=== PATIENT | male | born 1965 | race American Indian/Alaskan Native ===

== ENCOUNTER 2016-05-15 07:57 | Emergency (ER) | payer BC ==
[2016-05-15 08:06] VITALS: TEMP 98.6; O2SAT 98; BMI 23.0
[2016-05-15] MEDS ORDERED: Naproxen 550 mg Tab PO STA (08:16)
--- NOTE | 2016-05-15 08:25 | ED PDOC ---
Arrival/HPI - General Chief Complaint: Back Pain Time Seen by Provider: 05/15/16 08:11 Historian: Patient - History of Present Illness Narrative History of Present Illness (Text): 05/15/16 08:19 50 year old male presents to the emergency department with right sided back pain for the past 2 months. He states he has had this pain before. Denies trauma or injury. Denies urinary symptoms. states follows with dr antoine. noted hnp in past, s/p injection. Time/Duration: > month Symptom Onset: Gradual Symptom Course: Unchanged Modifying Factors (Text): None Associated Symptoms (Text): None Past Medical History - Provider Review Nursing Documentation Reviewed: Yes - Infectious Disease Hx of Infectious Diseases: None - Tetanus Immunization Tetanus Immunization: Unknown - Cardiac Hx Hypertension: Yes - Pulmonary Hx Respiratory Disorders: Yes Hx Bronchitis: Yes - Neurological Hx Neurological Disorder: Yes Hx Alzheimer's Disease: No HX Cerebrovascular Accident: No Hx Dementia: No Hx Dizziness: No Hx Meningitis: No Hx Migraine: Yes Hx Parkinson's Disease: No Hx Seizures: No Hx Transient Ischemic Attacks (TIA): No - HEENT Hx HEENT Disorder: Yes (Sinusitis, sinus surgery, ringing in the ears) - Renal Hx Renal Disorder: No Hx Dialysis: No Hx Kidney Stones: No Hx Neurogenic Bladder: No Hx Pyelonephritis: No Hx Renal Cancer: No Hx Renal Failure: No - Endocrine/Metabolic Hx Endocrine Disorders: No Hx Adrenal Cancer: No Hx Diabetes Insipidus: No Hx Diabetes Mellitus Type 1: No Hx Diabetes Mellitus Type 2: No Hx Hyperthyroidism: No Hx Hypothyroidism: No Hx Systemic Lupus Erythematosus: No - Hematological/Oncological Hx Blood Disorders: No Hx AIDS: No Hx Anemia: No Hx Cancer: No Hx Chemotherapy: No Hx Cirrhosis: No Hx Hemophilia: No Hx Hepatitis A: No Hx Hepatitis B: No Hx Hepatitis C: No Hx Metastasis: No Hx Shingles: No Hx Sickle Cell Disease: No Hx Unexplained Bleeding: No - Integumentary Hx Dermatological Disorder: No Hx Basal Cell Carcinoma: No Hx Eczema: No Hx Melanoma: No Hx Psoriasis: No Hx Squamous Cell Carcinoma: No - Musculoskeletal/Rheumatological Hx Arthritis: Yes - Gastrointestinal Hx Gastrointestinal Disorders: Yes Hx Colostomy: No Hx Crohn's Disease: No Hx Diverticulitis: No Hx Gall Bladder Disease: No Hx Gastroesophageal Reflux: Yes Hx Gastrointestinal Ulcer: Yes Hx Ileostomy: No Hx Liver Failure: No Hx Pancreatitis: No HX Swallowing Problems: No - Genitourinary/Gynecological Hx Genitourinary Disorders: No Hx Hematuria: No Hx Incontinence: No Hx Prostate Problems: No Hx Sexually Transmitted Diseases: No Hx Urinary Tract Infection: No - Psychiatric Hx Psychophysiologic Disorder: No Hx Anxiety: No Hx Bipolar Disorder: No Hx Depression: No Hx Emotional Abuse: No Hx Hallucinations: No Hx Panic Disorder: No Hx Post Traumatic Stress Disorder: No Hx Psychosis: No Hx Physical Abuse: No Hx Schizophrenia: No Hx Sexual Abuse: No Hx Substance Use: No - Surgical History Hx Amputation: No Hx Appendectomy: No Hx Cardiac Catheterization: No Hx Cholecystectomy: No Hx Coronary Stent: No Hx Gastric Bypass Surgery: No Hx Hysterectomy: No Hx Joint Replacement: No Hx Kidney Transplant: No Hx Liver Transplant: No Hx Mastectomy: No Hx Musculoskeletal Surgery: Yes Hx Open Heart Surgery: No Hx Orthopedic Surgery: Yes Hx Splenectomy: No Hx Valve Replacement: No - Anesthesia Hx Anesthesia Reactions: No Hx Malignant Hyperthermia: No - Suicidal Assessment Feels Threatened In Home Enviroment: No Family/Social History - Physician Review Nursing Documentation Reviewed: Yes Family/Social History: Unknown Family HX Smoking Status: Never Smoked Hx Alcohol Use: Yes (1-2 beers per day) Hx Substance Use: No Hx Substance Use Treatment: No Allergies/Home Meds Allergies/Adverse Reactions: Allergies aspirin Allergy (Verified 05/15/16 08:06) RASH Home Medications: Home Meds Medication Instructions Recorded Confirmed Rosuvastatin Calcium [Crestor] 10 mg PO QPM 05/10/14 05/15/16 Dexlansoprazole [Dexilant] 60 mg PO DAILY 01/31/16 05/15/16 Folic Acid 1 mg PO DAILY 01/31/16 05/15/16 Levocetirizine Dihydrochloride 5 mg PO DAILY 01/31/16 05/15/16 [Xyzal] Zolpidem [Ambien] 10 mg PO HS 01/31/16 05/15/16 Review of Systems - Physician Review All systems were reviewed & negative as marked: Yes - Review of Systems Respiratory: absent: SOB, Cough Cardiovascular: absent: Chest Pain Gastrointestinal: absent: Abdominal Pain Genitourinary Male: absent: Dysuria, Frequency, Hematuria Musculoskeletal: Back Pain Neurological: absent: Headache Physical Exam Vital Signs Reviewed: Yes Vital Signs Temp Pulse Resp BP Pulse Ox 05/15/16 09:47 89 18 134/86 98 05/15/16 08:02 98.6 F 96 H 16 136/91 H 98 Temperature: Afebrile Blood Pressure: Normal Pulse: Regular Respiratory Rate: Normal Appearance: Positive for: Well-Appearing, Non-Toxic, Comfortable Pain Distress: None Mental Status: Positive for: Alert and Oriented X 3 - Systems Exam Head: Present: Atraumatic, Normocephalic Pupils: Present: PERRL Extroacular Muscles: Present: EOMI Conjunctiva: Present: Normal Mouth: Present: Moist Mucous Membranes Neck: Present: Normal Range of Motion Respiratory/Chest: Present: Clear to Auscultation, Good Air Exchange. No: Respiratory Distress, Accessory Muscle Use Cardiovascular: Present: Regular Rate and Rhythm, Normal S1, S2. No: Murmurs Abdomen: Present: Normal Bowel Sounds. No: Tenderness, Distention, Peritoneal Signs Back: Present: Paraspinal Tenderness (Right lumbar paraspinal tenderness) Upper Extremity: Present: Normal Inspection. No: Cyanosis, Edema Lower Extremity: Present: Normal Inspection. No: Edema Neurological: Present: GCS=15, CN II-XII Intact, Speech Normal Skin: Present: Warm, Dry, Normal Color. No: Rashes Psychiatric: Present: Alert, Oriented x 3, Normal Insight, Normal Concentration Medical Decision Making ED Course and Treatment: Impression: 50 year old male presents to the emergency department with right sided back pain for the past 2 months. Differential Diagnosis include but are not limited to: Strain vs nonspecific back pain Plan: -- Anaprox, Flexeril -- Reassess and disposition Prior Visits: Notes and results from previous visits were reviewed. Patient last seen in ED on 12/16/15 for chest pain and left AMA. Progress Notes: 05/15/16 09:47 Patient sleeping comfortably, steady gait, neuro intact. stable for dc. no urinary changes, no saddle anesthesia. - Lab Interpretations Lab Results: Lab Results 05/15/16 08:40: Urine Color Yellow, Urine Appearance Clear, Urine pH 5.5, Ur Specific [place] 1.010, Urine Protein Negative, Urine Glucose (UA) Negative, Urine Ketones Negative, Urine Blood Negative, Urine Nitrate Negative, Urine Bilirubin Negative, Urine Urobilinogen 0.2, Ur Leukocyte Esterase Small H, Urine RBC 0 - 2, Urine WBC 1 - 3, Ur Epithelial Cells 0 - 2, Urine Bacteria Trace - Medication Orders Current Medication Orders: Discontinued Medications Cyclobenzaprine HCl (Flexeril) 10 mg PO STAT STA Stop: 05/15/16 08:17 Last Admin: 05/15/16 08:35 Dose: 10 MG Naproxen (Anaprox Ds) 550 mg PO STAT STA Stop: 05/15/16 08:17 Last Admin: 05/15/16 08:36 Dose: 550 MG - Scribe Statement The provider has reviewed the documentation as recorded by the Lucila Rivero Provider Scribe Attestation: All medical record entries made by the Lucila were at my direction and personally dictated by me. I have reviewed the chart and agree that the record accurately reflects my personal performance of the history, physical exam, medical decision making, and the department course for this patient. I have also personally directed, reviewed, and agree with the discharge instructions and disposition. Disposition/Present on Arrival - Present on Arrival Any Indicators Present on Arrival: No History of DVT/PE: No History of Uncontrolled Diabetes: No Urinary Catheter: No History of Decub. Ulcer: No History Surgical Site Infection Following: None - Disposition Have Diagnosis and Disposition been Completed?: Yes Diagnosis: Back pain Disposition: HOME/ ROUTINE Disposition Time: 09:48 Condition: STABLE Discharge Instructions (ExitCare): Acute Low Back Pain (ED) Additional Instructions: please see your specialist. return to er with worsening symptoms or concerns. Prescriptions: Cyclobenzaprine [Cyclobenzaprine HCl] 10 mg PO TID PRN #21 tab PRN Reason: Muscle Spasm Naproxen 500 mg PO BID PRN #14 tab PRN Reason: Pain, Mild (1-3) Referrals: Zeke Paiz MD [Primary Care Provider] - Follow up with primary
[2016-05-15 09:06] LABS: PH,URINE 5.5 (4.7-8.0); URINE BILIRUBIN NEGATIVE (NEGATIVE); URINE BLOOD NEGATIVE (NEGATIVE); URINE GLUCOSE (UA) NEGATIVE (NEGATIVE); URINE KETONE NEGATIVE (NEGATIVE); URINE LEUKOCYTE ESTERASE SMALL Leu/uL (NEGATIVE); URINE PROTEIN NEGATIVE mg/dL (<30 mg/dL); URINE UROBILINOGEN 0.2 E.U./dL (<1 E.U./dL)
[2016-05-15 09:12] LABS: URINE APPEARANCE CLEAR (CLEAR); URINE COLOR YELLOW (YELLOW)
[2016-05-15 09:46] LABS: URINE BACTERIA TRACE (NEG); URINE EPITHELIAL CELLS 0 - 2 /hpf (0-5); URINE RBC 0 - 2 /hpf (0-2)
[2016-05-15 09:48] VITALS: BP 134/86; PULSE 89; RESP 18
== END 2016-05-15 10:05 | disposition home or self-care (01) ==
LOC: ED 07:57
DX: M54.9 Dorsalgia, unspecified (principal)

== ENCOUNTER 2016-10-03 23:02 | Observation (INO) | payer BC ==
--- NOTE | 2016-10-03 23:25 | ED PDOC ---
Arrival/HPI <Leobardo Christie - Last Filed: 10/03/16 23:49> - General Historian: Patient <Nisha Pollard - Last Filed: 10/04/16 01:25> - General Time Seen by Provider: 10/03/16 23:04 - History of Present Illness Narrative History of Present Illness (Text): 10/03/16 23:31 50 year old male with past medical history of HTN, HLD, PUD presents for chest pain that began about 10 hours ago. Chest pain located on left side of chest and does not radiate anywhere else. Pain is a sharp sensation and intermittent in nature. Patient denies having any N/V, diaphoresis, lightheadedness, cough, SOB, F/C associated with pain. 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 Patient had outpatient stress test done about 6 months ago which was normal. Patient denies tobacco abuse. Patient's father had CAD at age of 83. (Nisha Pollard) Past Medical History - Provider Review Nursing Documentation Reviewed: Yes - Infectious Disease Hx of Infectious Diseases: None - Tetanus Immunization Tetanus Immunization: Unknown - Cardiac Hx Hypertension: Yes - Pulmonary Hx Respiratory Disorders: Yes Hx Bronchitis: Yes - Neurological Hx Neurological Disorder: Yes Hx Alzheimer's Disease: No HX Cerebrovascular Accident: No Hx Dementia: No Hx Dizziness: No Hx Meningitis: No Hx Migraine: Yes Hx Parkinson's Disease: No Hx Seizures: No Hx Transient Ischemic Attacks (TIA): No - HEENT Hx HEENT Disorder: Yes (Sinusitis, sinus surgery, ringing in the ears) - Renal Hx Renal Disorder: No Hx Dialysis: No Hx Kidney Stones: No Hx Neurogenic Bladder: No Hx Pyelonephritis: No Hx Renal Cancer: No Hx Renal Failure: No - Endocrine/Metabolic Hx Endocrine Disorders: No Hx Adrenal Cancer: No Hx Diabetes Insipidus: No Hx Diabetes Mellitus Type 1: No Hx Diabetes Mellitus Type 2: No Hx Hyperthyroidism: No Hx Hypothyroidism: No Hx Systemic Lupus Erythematosus: No - Hematological/Oncological Hx Blood Disorders: No Hx AIDS: No Hx Anemia: No Hx Cancer: No Hx Chemotherapy: No Hx Cirrhosis: No Hx Hemophilia: No Hx Hepatitis A: No Hx Hepatitis B: No Hx Hepatitis C: No Hx Metastasis: No Hx Shingles: No Hx Sickle Cell Disease: No Hx Unexplained Bleeding: No - Integumentary Hx Dermatological Disorder: No Hx Basal Cell Carcinoma: No Hx Eczema: No Hx Melanoma: No Hx Psoriasis: No Hx Squamous Cell Carcinoma: No - Musculoskeletal/Rheumatological Hx Arthritis: Yes - Gastrointestinal Hx Gastrointestinal Disorders: Yes Hx Colostomy: No Hx Crohn's Disease: No Hx Diverticulitis: No Hx Gall Bladder Disease: No Hx Gastroesophageal Reflux: Yes Hx Gastrointestinal Ulcer: Yes Hx Ileostomy: No Hx Liver Failure: No Hx Pancreatitis: No HX Swallowing Problems: No - Genitourinary/Gynecological Hx Genitourinary Disorders: No Hx Hematuria: No Hx Incontinence: No Hx Prostate Problems: No Hx Sexually Transmitted Diseases: No Hx Urinary Tract Infection: No - Psychiatric Hx Psychophysiologic Disorder: No Hx Anxiety: No Hx Bipolar Disorder: No Hx Depression: No Hx Emotional Abuse: No Hx Hallucinations: No Hx Panic Disorder: No Hx Post Traumatic Stress Disorder: No Hx Psychosis: No Hx Physical Abuse: No Hx Schizophrenia: No Hx Sexual Abuse: No Hx Substance Use: No - Surgical History Hx Amputation: No Hx Appendectomy: No Hx Cardiac Catheterization: No Hx Cholecystectomy: No Hx Coronary Stent: No Hx Gastric Bypass Surgery: No Hx Hysterectomy: No Hx Joint Replacement: No Hx Kidney Transplant: No Hx Liver Transplant: No Hx Mastectomy: No Hx Musculoskeletal Surgery: Yes Hx Open Heart Surgery: No Hx Orthopedic Surgery: Yes Hx Splenectomy: No Hx Valve Replacement: No - Anesthesia Hx Anesthesia Reactions: No Hx Malignant Hyperthermia: No - Suicidal Assessment Feels Threatened In Home Enviroment: No <Nisha Pollard - Last Filed: 10/04/16 01:25> Family/Social History - Physician Review Nursing Documentation Reviewed: Yes Family/Social History: CAD/ID Smoking Status: Never Smoked Hx Alcohol Use: Yes (1-2 beers per day) Hx Substance Use: No Hx Substance Use Treatment: No <Nisha Pollard - Last Filed: 10/04/16 01:25> Allergies/Home Meds <Leobardo Christie - Last Filed: 10/03/16 23:49> <Nisha Pollard - Last Filed: 10/04/16 01:25> Allergies/Adverse Reactions: Allergies aspirin Allergy (Verified 05/15/16 08:06) RASH Home Medications: Home Meds Medication Instructions Recorded Confirmed Rosuvastatin Calcium [Crestor] 10 mg PO QPM 05/10/14 10/04/16 Dexlansoprazole [Dexilant] 60 mg PO DAILY 01/31/16 10/04/16 Folic Acid 1 mg PO DAILY 01/31/16 10/04/16 Levocetirizine Dihydrochloride 5 mg PO DAILY 01/31/16 10/04/16 [Xyzal] Zolpidem [Ambien] 10 mg PO HS 01/31/16 10/04/16 Review of Systems - Review of Systems Constitutional: Normal. absent: Fevers Respiratory: Normal. absent: SOB, Cough Cardiovascular: Chest Pain. absent: Palpitations, Calf Pain Gastrointestinal: Normal. absent: Abdominal Pain, Constipation, Diarrhea, Nausea, Vomiting Genitourinary Male: Normal. absent: Dysuria, Frequency Musculoskeletal: Normal. absent: Back Pain Skin: Normal. absent: Rash, Skin Lesions Neurological: Normal. absent: Headache, Dizziness Endocrine: Normal. absent: Diaphoresis Psychiatric: Normal. absent: Anxiety, Depression <Amn At[place] - Last Filed: 10/04/16 01:25> Physical Exam Temperature: Afebrile Blood Pressure: Normal Pulse: Regular Respiratory Rate: Normal Appearance: Positive for: Well-Appearing, Non-Toxic, Comfortable Pain Distress: None Mental Status: Positive for: Alert and Oriented X 3 - Systems Exam Head: Present: Atraumatic, Normocephalic Pupils: Present: PERRL Mouth: Present: Moist Mucous Membranes Respiratory/Chest: Present: Clear to Auscultation, Good Air Exchange. No: Respiratory Distress, Accessory Muscle Use Cardiovascular: Present: Regular Rate and Rhythm, Normal S1, S2. No: Murmurs, Irregular Rhythm Abdomen: Present: Normal Bowel Sounds. No: Tenderness, Distention, Peritoneal Signs, Rebound, Guarding Back: No: CVA Tenderness Lower Extremity: Present: Normal Inspection. No: Edema, CALF TENDERNESS Neurological: Present: CN II-XII Intact, Speech Normal, Normal Sensory Function Skin: Present: Warm, Dry, Normal Color. No: Rashes Psychiatric: Present: Alert, Oriented x 3, Normal Insight, Normal Concentration <Nisha Pollard - Last Filed: 10/04/16 01:25> Vital Signs Temp Pulse Resp BP Pulse Ox 10/03/16 23:34 98.5 F 94 H 16 140/93 H 96 Medical Decision Making - EKG Interpretation Interpreted by ED Physician: Yes Type: 12 lead EKG <Leobardo Christie - Last Filed: 10/03/16 23:49> - EKG Interpretation Interpreted by ED Physician: Yes Type: 12 lead EKG <Nisha Pollard - Last Filed: 10/04/16 01:25> ED Course and Treatment: Impression: Pt seen and evaluated with medical clinic manager. Pt, whose past medical history includes hypertension, hyperlipidemia, and peptic ulcer disease, presented for intermittent sharp left-sided chest pain. Reports family history of CAD. Aware and agree with HPI, clinical findings, plan, and management. Plan: -- EKG -- Chest X-ray -- Labs, cardiac enzymes -- Reassess and disposition (Leobardo Christie) 10/03/16 23:39 50 year old male with chest pain Will check CBC CMP Cardiac Iso EKG Chest xray Patient states that due to his history of PUD, he does not take aspirin at home. Will give patient plavix. 10/04/16 01:18 CXR is pending. Patient is agreeable to staying in hospital for observation overnight. 10/04/16 01:24 Dr. Paiz accepts patient to his service, also request D dimer on patient. resident doctor notified. (Nisha Pollard) - Lab Interpretations Narrative Lab Interpretation (Text): 10/04/16 01:01 Initial troponin is normal. (Nisha Pollard) Lab Results: 10/03/16 23:45 10/03/16 23:45 Lab Results 10/03/16 23:45: Sodium 139, Potassium 4.4, Chloride 103, Carbon Dioxide 21, Anion Gap 19, BUN 9, Creatinine 0.9, Est GFR ( Amer) > 60, Est GFR (Non- Af Amer) > 60, Random Glucose 94, Calcium 9.7, Total Bilirubin 0.6, AST 65 H, ALT 96 H, Alkaline Phosphatase 68, Lactate Dehydrogenase 592, Total Creatine Kinase 95, Troponin I 0.01 D, Total Protein 8.0, Albumin 4.7, Globulin 3.3, Albumin/Globulin Ratio 1.4 10/03/16 23:45: WBC 4.6 D, RBC 4.65, Hgb 14.7, Hct 42.0, MCV 90.3, MCH 31.6, MCHC 35.0, RDW 14.1, Plt Count 278, MPV 9.2 - RAD Interpretation Radiology Orders: 10/03/16 23:31 CXR (PA/LAT) [CHEST TWO VIEWS (PA/LAT)] [RAD] Stat - EKG Interpretation EKG Interpretation (Text): 10/03/16 23:41 NSR with HR of 91, normal axis, normal intervals. Nonspecific St changes noted unchanged from previous EKG (Nisha Pollard) - Medication Orders Current Medication Orders: Discontinued Medications Clopidogrel Bisulfate (Plavix) 300 mg PO STAT STA Stop: 10/03/16 23:41 Last Admin: 10/04/16 01:24 Dose: 300 mg SHEBA Risk Score for UA/NSTEMI - SHEBA Risk Score Age > 64: NO 3 or more CAD Risk Factors: YES Known CAD (Stenosis greater than 50%): NO Aspirin use in past 7 days: NO Severe Angina: YES EKG ST changes greater than 0.5mm: NO Positive Cardiac Marker: NO SHEBA Score: 2 % risk at 14 days of: all cause mortality, new or recurrent ID, or severe recurrent ischemia requiring urgen revascularization: 8% <Nisha Pollard - Last Filed: 10/04/16 01:25> - PA / FIELD COORDINATOR / Resident Statement / has reviewed & agrees with the documentation as recorded. / has examined the patient and agrees with the treatment plan. <Leobardo Christie - Last Filed: 10/03/16 23:49> Disposition/Present on Arrival <Leobardo Christie - Last Filed: 10/03/16 23:49> - Present on Arrival Any Indicators Present on Arrival: No History of DVT/PE: No History of Uncontrolled Diabetes: No Urinary Catheter: No History Surgical Site Infection Following: None - Disposition Have Diagnosis and Disposition been Completed?: Yes Disposition Time: 01:07 Patient Plan: Admission <Nisha Pollard - Last Filed: 10/04/16 01:25> - Disposition Diagnosis: Chest pain Disposition: HOSPITALIZED Patient Problems: Current Active Problems Problem Status Onset Chest pain Acute Condition: STABLE Discharge Instructions (ExitCare): Chest Pain (ED)
[2016-10-03 23:31] VITALS: BMI 21.2
[2016-10-04 00:03] LABS: HEMOGLOBIN 14.7 gm/dL (14.0-18.0); MEAN CELL VOLUME 90.3 fL (80.0-105.0); MEAN CORPUSCULAR HEMOGLOBIN 31.6 pg (25.0-35.0); MEAN PLATELET VOLUME 9.2 fl (7.0-11.0); RBC 4.65 10^6/uL (3.5-6.1); RED CELL DISTRIBUTION WIDTH 14.1 % (11.5-14.5); WHITE BLOOD COUNT 4.6 10^3/ul (4.5-11.0)
[2016-10-04 00:10] LABS: ALB/GLOB RATIO 1.4 (1.1-1.8); ALBUMIN 4.7 g/dL (3.0-4.8); ALT/SGPT 96 U/L (7-56); AST/SGOT 65 U/L (15-59); BLOOD UREA NITROGEN 9 mg/dL (7-21); CALCIUM 9.7 mg/dL (8.4-10.5); GFR AFRICAN-AMERICAN > 60; GFR NON-AFRICAN AMERICAN > 60
[2016-10-04 00:23] LABS: TROPONIN I 0.01 ng/mL
--- NOTE | 2016-10-04 01:58 | CP.PCM.HP ---
History of Present Illness - History of Present Illness History of Present Illness: H and P for Dr. Paiz 50 y/o M with PMH of HTN and PUD presents to the ED for a 2 day history of chest pain. Pt states he was at home and gradually developed worsening chest pain. Pain is located on the left side of the chest and is nonradiating. Pain is a 6/10 and characterized as a sharp, stabbing type of pain. Pt states pain is intermittent and there are no alleviating or exacerbating factors. Pt did not take any medication for it at home. Pt underwent stress test in 01/2016 which was normal. Pt also underwent echocardiogram at which showed normal EF, trace MR and TR. Pt admits to occasional shortness of breath during this time, but not on exertion. Denies N/V/D, fevers, chills, syncope, dizziness, sick contacts, or trauma. PMH: HTN, PUD FMH: Father - DM, Mother - HTN Surgical Hx: Sinus surgery, Left foot surgery Social Hx: Chews tobacco for 40 years. 2-3 beers per day. Denies illicit drug use Medication: Reviewed, as per [facility] Allergies: ASA Present on Admission - Present on Admission Any Indicators Present on Admission: No Review of Systems - Constitutional Constitutional: absent: Chills, Fatigue, Fever - EENT Eyes: absent: Blurred Vision, Change in Vision Nose/Mouth/Throat: absent: Nasal Discharge, Nose Pain - Cardiovascular Cardiovascular: Chest Pain. absent: Irregular Heart Rhythm, Palpitations - Respiratory Respiratory: Dyspnea. absent: Cough - Gastrointestinal Gastrointestinal: absent: Diarrhea, Nausea, Vomiting - Genitourinary Genitourinary: absent: Dysuria, Pyuria - Musculoskeletal Musculoskeletal: absent: Atrophy, Muscle Weakness - Integumentary Integumentary: absent: New Lesions, Rash - Neurological Neurological: absent: Numbness, Syncope, Tingling - Hematologic/Lymphatic Hematologic: absent: Easy Bleeding, Easy Bruising Past Patient History - Infectious Disease Hx of Infectious Diseases: None - Tetanus Immunizations Tetanus Immunization: Unknown - Past Social History Smoking Status: Never Smoked - CARDIAC Hx Hypertension: Yes - PULMONARY Hx Respiratory Disorders: Yes Hx Bronchitis: Yes - NEUROLOGICAL Hx Neurological Disorder: Yes Hx Alzheimer's Disease: No HX Cerebrovascular Accident: No Hx Dementia: No Hx Dizziness: No Hx Meningitis: No Hx Migraine: Yes Hx Parkinson's Disease: No Hx Seizures: No Hx Transient Ischemic Attacks (TIA): No - HEENT Hx HEENT Problems: Yes (Sinusitis, sinus surgery, ringing in the ears) - RENAL Hx Chronic Kidney Disease: No Hx Dialysis: No Hx Kidney Stones: No Hx Neurogenic Bladder: No Hx Pyelonephritis: No Hx Renal (Kidney) Cancer: No Hx Renal Failure: No - ENDOCRINE/METABOLIC Hx Endocrine Disorders: No Hx Adrenal Cancer: No Hx Diabetes Insipidus: No Hx Diabetes Mellitus Type 1: No Hx Diabetes Mellitus Type 2: No Hx Hyperthyroidism: No Hx Hypothyroidism: No Hx Systemic Lupus Erythematosus: No - HEMATOLOGICAL/ONCOLOGICAL Hx Blood Disorders: No Hx AIDS: No Hx Anemia: No Hx Cancer: No Hx Chemotherapy: No Hx Cirrhosis: No Hx Hemophilia: No Hx Hepatitis A: No Hx Hepatitis B: No Hx Hepatitis C: No Hx Metastesis: No Hx Shingles: No Hx Sickle Cell Disease: No Hx Unexplained Bleeding: No - INTEGUMENTARY Hx Dermatological Problems: No Hx Basil Cell: No Hx Eczema: No Hx Melanoma: No Hx Psoriasis: No Hx Squamous Cell: No - MUSCULOSKELETAL/RHEUMATOLOGICAL Hx Arthritis: Yes - GASTROINTESTINAL Hx Gastrointestinal Disorders: Yes Hx Colostomy: No Hx Crohn's Disease: No Hx Diverticulitis: No Hx Gall Bladder Disease: No Hx Gastroesophageal Reflux: Yes Hx Ileostomy: No Hx Liver Failure: No Hx Pancreatitis: No HX Swallowing Problems: No - GENITOURINARY/GYNECOLOGICAL Hx Genitourinary Disorders: No Hx Hematuria: No Hx Incontinence: No Hx Prostate Problems: No Hx Sexually Transmitted Disorders: No Hx Urinary Tract Infection: No - PSYCHIATRIC Hx Psychophysiologic Disorder: No Hx Anxiety: No Hx Bipolar Disorder: No Hx Depression: No Hx Emotional Abuse: No Hx Hallucinations: No Hx Panic Symptoms: No Hx Post Traumatic Stress Disorder: No Hx Psychosis: No Hx Physical Abuse: No Hx Schizophrenia: No Hx Sexual Abuse: No Hx Substance Use: No - SURGICAL HISTORY Hx Amputation: No Hx Appendectomy: No Hx Cardiac Catheterization: No Hx Cholecystectomy: No Hx Coronary Stent: No Hx Gastric Bypass Surgery: No Hx Hysterectomy: No Hx Joint Replacement: No Hx Kidney Transplant: No Hx Liver Transplant: No Hx Mastectomy: No Hx Musculoskeletal Surgery: Yes Hx Open Heart Surgery: No Hx Orthopedic Surgery: Yes Hx Splenectomy: No Hx Valve Replacement: No - ANESTHESIA Hx Anesthesia Reactions: No Hx Malignant Hyperthermia: No Meds Allergies/Adverse Reactions: Allergies Allergy/AdvReac Type Severity Reaction Status Date / Time aspirin Allergy RASH Verified 05/15/16 08:06 Physical Exam - Constitutional Appears: Well, No Acute Distress - Head Exam Head Exam: ATRAUMATIC, NORMAL INSPECTION, NORMOCEPHALIC - Eye Exam Eye Exam: EOMI - ENT Exam ENT Exam: Mucous Membranes Moist - Neck Exam Neck exam: Positive for: Normal Inspection. Negative for: Lymphadenopathy - Respiratory Exam Respiratory Exam: Clear to Auscultation Bilateral, NORMAL BREATHING PATTERN. absent: Rales, Rhonchi, Wheezes - Cardiovascular Exam Cardiovascular Exam: RRR, +S1, +S2 - GI/Abdominal Exam GI & Abdominal Exam: Normal Bowel Sounds, Soft. absent: Tenderness - Extremities Exam Extremities exam: Positive for: normal inspection. Negative for: calf tenderness, pedal edema - Neurological Exam Neurological exam: Alert, CN II-XII Intact, Oriented x3 - Psychiatric Exam Psychiatric exam: Normal Affect, Normal Mood - Skin Skin Exam: Intact, Normal Color, Warm Results - Vital Signs Recent Vital Signs: Last Vital Signs Temp 98.5 F 10/03/16 23:34 Pulse 94 H 10/03/16 23:34 Resp 16 10/03/16 23:34 BP 140/93 H 10/03/16 23:34 Pulse Ox 96 10/03/16 23:34 - Labs Result Diagrams: 10/03/16 23:45 10/03/16 23:45 Assessment & Plan - Assessment and Plan (Free Text) Plan: 50 y/o with PMH of HTN and PUD presents to the hospital for chest pain r/o ACS. Pt with negative troponins at this time, will trend. D-dimer ordered in the ED was negative. Pt will have cardiology consulted and be continued on home medication. Pt will be admitted to the telemetry unit for further evaluation. 1. Chest r/o ACS - Trend troponins - ASA allergy, will start plavix - Lipid panel ordered - UDS ordered - Echocardiogram and Stress test performed in 01/2016 - EKG NSR - Cardiology consulted, Dr. Horn 2. Transminitis - Mildly elevated LFTs - Will order hepatitis panel - Recheck in AM 3. Hx of HTN - No medication at home - Will consider starting beta juma in AM 4. Hx of PUD - Continue home Dexilant 5. PPX - Dexilant - Heparin Mago, PGY-2
[2016-10-04 05:52] LABS: HEMOGLOBIN 13.9 gm/dL (14.0-18.0); MEAN CELL VOLUME 89.6 fL (80.0-105.0); MEAN CORPUSCULAR HEMOGLOBIN 31.4 pg (25.0-35.0); MEAN PLATELET VOLUME 8.6 fl (7.0-11.0); RBC 4.43 10^6/uL (3.5-6.1); RED CELL DISTRIBUTION WIDTH 14.1 % (11.5-14.5); WHITE BLOOD COUNT 4.4 10^3/ul (4.5-11.0)
[2016-10-04 05:55] VITALS: O2SAT 99
[2016-10-04] MEDS ORDERED: Pantoprazole 40 mg EC Tab PO SCH (06:00)
[2016-10-04 06:05] LABS: ALB/GLOB RATIO 1.4 (1.1-1.8); ALBUMIN 4.3 g/dL (3.0-4.8); ALT/SGPT 95 U/L (7-56); AST/SGOT 53 U/L (15-59); BLOOD UREA NITROGEN 8 mg/dL (7-21); CALCIUM 9.5 mg/dL (8.4-10.5); GFR AFRICAN-AMERICAN > 60; GFR NON-AFRICAN AMERICAN > 60; MAGNESIUM 1.7 mg/dL (1.7-2.2)
[2016-10-04 06:16] LABS: LDL CHOLESTEROL 66 mg/dL (0-129); TROPONIN I 0.03 ng/mL
[2016-10-04 06:18] LABS: HDL CHOLESTEROL 128 mg/dL (29-60)
[2016-10-04] MEDS ORDERED: Potassium Chloride 20 mEq ER Tab PO STA (06:25)
--- NOTE | 2016-10-04 09:59 | CARD ---
APPROVED REPORT EKG Measurement Heart [id number] <Conclusion> Normal sinus rhythm Nonspecific T wave abnormality LVH by voltage No change
--- NOTE | 2016-10-04 10:10 | HP ---
HISTORY OF PRESENT ILLNESS: The patient is a 50-year-old male. The patient presented to the emergency room with chest pain and abdominal discomfort in the epigastric area. The patient says he had some loose bowel movements associated with that. No vomiting. The patient denies any fever, chills, or any symptoms of dizziness or palpitations. PAST MEDICAL HISTORY: The patient's past history is significant that he is taking medication for high blood pressure. He also has history of peptic ulcer disease. He has been evaluated by Dr. Mejia in the past for gastrointestinal disease and colonoscopy examination. The patient has had cardiac evaluation also in the past. SOCIAL HISTORY: He chews tobacco and drinks beer occasionally. He does not take any illicit drugs. ALLERGIES: THE PATIENT IS ALLERGIC TO ASPIRIN. PHYSICAL EXAMINATION GENERAL: On evaluation, the patient is lying in bed, comfortable. VITAL SIGNS: Pulse is 72, blood pressure 124/88, respirations 18, O2 saturation is 99% on room air. Temperature 97.7. HEENT: The patient's head is normocephalic. There is no evidence of any abnormality in the eyes. His tongue is pink. NECK: Thyroid is not enlarged. There is no lymphadenopathy. HEART: Normal sinus rhythm. S1 and S2 present. No murmurs are heard. LUNGS: Trachea central. Breath sounds are vesicular. No adventitious sounds heard. ABDOMEN: Soft. No tenderness present in the four quadrants of the abdomen. There is no evidence of distention. No evidence of masses or localizing signs. RECTAL: Deferred. He has no evidence of any blood, but the patient says he has had a tinge of blood present occasionally. BACON SLICER: Conscious, rational, oriented. The patient is pleasant and his cranial nerves are intact from II through XII. He has sense of smell. His balance is good. The cerebellar signs are normal. His motor and sensory functions are normal. LABORATORY DATA: The patient is in the hospital as an observation patient. His white count is normal. Hemoglobin is 13.9. His chemistry that was done shows abnormal liver enzymes. His SGOT and SGPT are elevated minimally. The patient's HDL level, cholesterol is 128. The patient's troponin is slightly elevated, it was 0.01 and it is 0.03. The patient's potassium is 3.5 this morning. PLAN: We will check his medications, and add potassium to his therapy. He needs a cardiac evaluation in view of the fact that he has slightly elevated troponin level and abnormal liver enzymes. DIAGNOSIS: Chest pain related cardiac event. The patient needs cardiac evaluation. The patient will be seen by Dr. Paiz tomorrow. Jovany Chaves MD MTDRhys
[2016-10-04] MEDS ORDERED: Enoxaparin 40 mg Syringe SC SCH (11:30)
[2016-10-04 11:45] VITALS: BP 134/96; PULSE 73; RESP 20; TEMP 98
--- NOTE | 2016-10-04 12:20 | RAD ---
HISTORY: chest pain COMPARISON: 12/17/2015 TECHNIQUE: Chest PA and lateral FINDINGS: LUNGS: No active pulmonary disease. PLEURA: No significant pleural effusion identified. No pneumothorax apparent. CARDIOVASCULAR: Normal. OSSEOUS STRUCTURES: No significant abnormalities. VISUALIZED UPPER ABDOMEN: Normal. OTHER FINDINGS: None. IMPRESSION: No active disease.
[2016-10-04 16:35] LABS: URINE BILIRUBIN NEGATIVE (NEGATIVE); URINE BLOOD NEGATIVE (NEGATIVE); URINE GLUCOSE (UA) NEGATIVE (NEGATIVE); URINE LEUKOCYTE ESTERASE NEGATIVE Leu/uL (NEGATIVE); URINE NITRATE NEGATIVE (NEGATIVE); URINE PROTEIN NEGATIVE mg/dL (<30 mg/dL); URINE UROBILINOGEN 0.2 E.U./dL (<1 E.U./dL)
[2016-10-04 16:44] LABS: URINE APPEARANCE CLEAR (CLEAR); URINE COLOR YELLOW (YELLOW)
[2016-10-04 16:57] LABS: BARBITURATES, UR POSITIVE (NEGATIVE); BENZODIAZEPINES, UR NEGATIVE (NEGATIVE); OPIATES, UR NEGATIVE (NEGATIVE); PHENCYCLIDINE, UR NEGATIVE (NEGATIVE)
[2016-10-05 08:28] LABS: HEPATITIS B SURFACE AG NEGATIVE (NEGATIVE)
[2016-10-05 08:34] LABS: HEPATITIS A IGM NEGATIVE (NEGATIVE); HEPATITIS B CORE AB NEGATIVE (NEGATIVE)
[2016-10-05 08:45] LABS: HEPATITIS C ANTIBODY NEGATIVE (NEGATIVE)
--- NOTE | 2016-10-05 09:16 | CON ---
DATE: 10/04/2016 CARDIOLOGY CONSULTATION REASON FOR CONSULTATION: Chest pain and abdominal pain. HISTORY OF PRESENT ILLNESS: The patient is a -plvk-ple male who has a history of hyperlipidemia, history of peptic ulcer disease in the past, who has bleeding peptic ulcer disease that did not require blood transfusion. The patient underwent a Myoview stress test, as well as an echocardiogram in 01/2016, they were both within normal limits. Patient presented because of lower sternal chest pain as well as epigastric discomfort and diarrhea. The patient denied any associated diaphoresis. He denies any radiation of his chest discomfort. SOCIAL HISTORY: The patient is nonsmoker. He is a social drinker. He works as a [employer]. MEDICATIONS: Ambien 5 mg at bedtime, Claritin 10 mg once a day, folic acid 1 mg daily, Lipitor 40 mg once a day, Lovenox 40 mg subcutaneously once a day, Plavix 75 mg once a day, Protonix 40 mg p.o. once a day. REVIEW OF SYSTEMS: No vomiting, no melena, no hematemesis. PHYSICAL EXAMINATION: GENERAL: The patient is a middle-aged male who does not appear to be in any distress. VITAL SIGNS: Blood pressure 134/96, heart rate 73, temperature 98, respiration 20. Earlier blood pressure today was within normal limits. HEENT: Normocephalic. CHEST: Clear. HEART: S1 and S2 regular. ABDOMEN: Soft. EXTREMITIES: No edema. LABORATORY DATA: Hemoglobin and hematocrit 13.9 and 39.7, white count and platelet count were 4.4 and 246,000. Today SMA-7 is within normal limits except for potassium of 3.5. Three sets of troponins are within normal limits. HDL cholesterol is 128, the rest of the lipid profile is within normal limits. EKG done twice revealed normal sinus rhythm. ASSESSMENT: 1. Atypical chest pain, myocardial infarction is ruled out. 2. Abdominal pain, rule out penetrating peptic ulcer disease. 3. Hyperlipidemia. RECOMMENDATIONS: Continue current oral Protonix and discontinue Plavix and Lovenox. Continue Lipitor at 40 mg once a day. Obtain serum amylase and lipase levels. No further cardiac workup is necessary at this time. Brennen Hannallah, MD
--- NOTE | 2016-10-05 09:59 | CARD ---
APPROVED REPORT EKG Measurement Heart [id number] <Conclusion> Normal sinus rhythm Voltage criteria for left ventricular hypertrophy Improved repolarization c/w ECG 10/03/16
== END 2016-10-04 15:56 | disposition home or self-care (01) ==
LOC: ED 23:02 → ERH 10-04 01:21 → 2RSO 10-04 02:32
PROVIDERS: ADMIT Internal Medicine; ATTEND Internal Medicine
DX: R07.89 Other chest pain (principal); R10.9 Unspecified abdominal pain; E78.5 Hyperlipidemia, unspecified; I10 Essential (primary) hypertension; K21.9 Gastro-esophageal reflux disease without esophagitis; Z72.0 Tobacco use; Z79.899 Other long term (current) drug therapy; Z82.49 Family history of ischemic heart disease and other diseases of the circulatory system; Z83.3 Family history of diabetes mellitus; J40 Bronchitis, not specified as acute or chronic; J32.9 Chronic sinusitis, unspecified; H93.19 Tinnitus, unspecified ear; M19.90 Unspecified osteoarthritis, unspecified site; I08.1 Rheumatic disorders of both mitral and tricuspid valves; Z88.6 Allergy status to analgesic agent; K27.9 Peptic ulcer, site unspecified, unspecified as acute or chronic, without hemorrhage or perforation
CPT/HCPCS: 71020; 80053; 80061; 80074; 81003; 82550; 83615; 83735; 84484; 85027; 85378; 93005; 99285; G0378; G0480; J1644

== ENCOUNTER 2017-03-24 18:54 | Observation (INO) | payer BC ==
[2017-03-24 19:55] VITALS: BMI 21.7
[2017-03-24 20:35] LABS: HEMOGLOBIN 15.2 g/dL (14.0-18.0); MEAN CELL VOLUME 91.2 fl (80.0-105.0); MEAN CORPUSCULAR HGB CONC 33.9 g/dl (31.0-37.0); MEAN PLATELET VOLUME 9.1 fl (7.0-11.0); RBC 4.91 10^6/uL (3.5-6.1); RED CELL DISTRIBUTION WIDTH 14.6 % (11.5-14.5); WHITE BLOOD COUNT 7.3 10^3/ul (4.5-11.0)
[2017-03-24 20:50] LABS: ALB/GLOB RATIO 1.4 (1.1-1.8); ALBUMIN 4.5 g/dL (3.0-4.8); ALT/SGPT 84 U/L (7-56); AST/SGOT 45 U/L (17-59); BLOOD UREA NITROGEN 9 mg/dL (7-21); CALCIUM 10.7 mg/dL (8.4-10.5); GFR AFRICAN-AMERICAN > 60; GFR NON-AFRICAN AMERICAN > 60
[2017-03-24 20:55] LABS: INR 1.03 (0.93-1.08); PARTIAL THROMBOPLASTIN TIME 35.5 Seconds (25.1-36.5); PROTHROMBIN TIME 11.7 SECONDS (9.4-12.5)
[2017-03-24 21:01] LABS: TROPONIN I < 0.01 ng/mL
--- NOTE | 2017-03-24 21:14 | ED PDOC ---
Arrival/HPI - General Chief Complaint: Headache Time Seen by Provider: 03/24/17 19:37 Historian: Patient - History of Present Illness Narrative History of Present Illness (Text): 03/24/17 20:00 Jose David Blanco is a 51 year old female, whose past medical history includes hypertension and PUD, who presents to the Emergency department for evaluation of chest discomfort and headache discomfort which began today. Patient was seen by his PMD today, who advised him to come to the ER for further evaluation. Patient denies any chest pain currently. Patient denies any shortness of breath , fever, chills, dizziness, or any other complaints. Time/Duration: Other (today) Symptom Onset: Gradual Symptom Course: Unchanged Activities at Onset: Light Context: Home Past Medical History - Provider Review Nursing Documentation Reviewed: Yes - Infectious Disease Hx of Infectious Diseases: None - Tetanus Immunization Tetanus Immunization: Unknown - Cardiac Hx Cardiac Disorders: Yes Hx Hypertension: Yes - Pulmonary Hx Respiratory Disorders: Yes Hx Bronchitis: Yes - Neurological Hx Neurological Disorder: Yes Hx Migraine: Yes - HEENT Hx HEENT Disorder: Yes (Sinusitis, sinus surgery, ringing in the ears) Hx Sinusitis: Yes - Renal Hx Renal Disorder: No - Endocrine/Metabolic Hx Endocrine Disorders: No - Hematological/Oncological Hx Blood Disorders: No - Integumentary Hx Dermatological Disorder: No - Musculoskeletal/Rheumatological Hx Musculoskeletal Disorders: Yes Hx Falls: No Hx Fractures: Yes (Left ankle with surgery) Hx Unsteady Gait: No - Gastrointestinal Hx Gastrointestinal Disorders: Yes Hx Gastroesophageal Reflux: Yes - Genitourinary/Gynecological Hx Genitourinary Disorders: No - Psychiatric Hx Psychophysiologic Disorder: Yes Hx Anxiety: Yes Hx Substance Use: No - Surgical History Hx Mastectomy: No Hx Musculoskeletal Surgery: Yes Hx Orthopedic Surgery: Yes (right knee) - Anesthesia Hx Anesthesia Reactions: No Hx Malignant Hyperthermia: No - Suicidal Assessment Feels Threatened In Home Enviroment: No Family/Social History - Physician Review Nursing Documentation Reviewed: Yes Family/Social History: Unknown Family HX Smoking Status: Never Smoked Hx Alcohol Use: Yes (1-2 beers daily/1 shot of mona daily) Hx Substance Use: No Hx Substance Use Treatment: No Allergies/Home Meds Allergies/Adverse Reactions: Allergies aspirin Allergy (Verified 03/24/17 19:05) RASH Home Medications: Home Meds Medication Instructions Recorded Confirmed Rosuvastatin Calcium [Crestor] 5 mg PO QPM 05/10/14 03/24/17 Dexlansoprazole [Dexilant] 60 mg PO DAILY 01/31/16 03/24/17 Folic Acid 1 mg PO DAILY 01/31/16 03/24/17 Levocetirizine Dihydrochloride 5 mg PO DAILY 01/31/16 03/24/17 [Xyzal] Zolpidem [Ambien] 10 mg PO HS 01/31/16 03/24/17 Acetaminophen/Butalbital/Caf 1 tab PO Q8 03/24/17 03/24/17 [Fioricet] Clonazepam [Klonopin] 0.5 mg PO DAILY 03/24/17 03/24/17 Ergocalciferol (Vitamin D2) 50,000 unit PO BID 03/24/17 03/24/17 [Vitamin D2] Pantoprazole Sodium [Protonix] 40 mg PO DAILY 03/24/17 03/24/17 Valsartan [Diovan] 80 mg PO DAILY 03/24/17 03/24/17 Zolpidem Tartrate [Ambien Cr] 12.5 mg PO QPM PRN 03/24/17 03/24/17 Review of Systems - Physician Review All systems were reviewed & negative as marked: Yes - Review of Systems Constitutional: Normal. absent: Fevers Eyes: Normal ENT: Normal Respiratory: absent: SOB Cardiovascular: Chest Pain Gastrointestinal: Normal. absent: Abdominal Pain, Diarrhea, Nausea, Vomiting Genitourinary Male: Normal. absent: Dysuria, Frequency, Hematuria, Urinary Output Changes Musculoskeletal: Normal. absent: Back Pain, Neck Pain Skin: Normal. absent: Rash Neurological: Headache. absent: Dizziness Endocrine: Normal Hemo/Lymphatic: Normal Psychiatric: Normal Physical Exam Vital Signs Reviewed: Yes Vital Signs Temp Pulse Resp BP Pulse Ox 03/25/17 00:19 80 18 119/85 97 03/24/17 23:34 150/93 H 03/24/17 23:00 93 H 18 153/90 H 97 03/24/17 21:00 97 H 18 152/89 H 97 03/24/17 19:53 98.3 F 98 H 20 157/109 H 99 03/24/17 19:10 98.8 F 106 H 18 134/95 H 97 Temperature: Afebrile Blood Pressure: Hypertensive Pulse: Regular Respiratory Rate: Normal Appearance: Positive for: Well-Appearing, Non-Toxic, Comfortable Pain Distress: None Mental Status: Positive for: Alert and Oriented X 3 - Systems Exam Head: Present: Atraumatic, Normocephalic Pupils: Present: PERRL Extroacular Muscles: Present: EOMI Conjunctiva: Present: Normal Mouth: Present: Moist Mucous Membranes Neck: Present: Normal Range of Motion Respiratory/Chest: Present: Clear to Auscultation, Good Air Exchange. No: Respiratory Distress, Accessory Muscle Use Cardiovascular: Present: Regular Rate and Rhythm, Normal S1, S2. No: Murmurs Abdomen: Present: Normal Bowel Sounds. No: Tenderness, Distention, Peritoneal Signs Back: Present: Normal Inspection Upper Extremity: Present: Normal Inspection. No: Cyanosis, Edema Lower Extremity: Present: Normal Inspection. No: Edema Neurological: Present: GCS=15, CN II-XII Intact, Speech Normal Skin: Present: Warm, Dry, Normal Color. No: Rashes Psychiatric: Present: Alert, Oriented x 3, Normal Insight, Normal Concentration Medical Decision Making ED Course and Treatment: 03/24/17 20:00 Impression: 51 year old male complaining of chest discomfort and headache discomfort today. Plan: -- CT Head -- EKG -- Chest X-ray -- Labs, cardiac enzymes -- Reassess and disposition Prior Visits: Notes and results from previous visits were reviewed. On 10/03/16, pt was seen in the Emergency department for chest pain. Pt was admitted to the hospital for further evaluation. Progress Notes: Reviewed EKG, NSR at [address] LVH. Non-specific ST/T wave changes. 03/24/17 22:10 Chest X-ray reviewed, shows no acute processes. 03/24/17 22:54 CT Head shows: Brain: Unremarkable. No significant white matter disease. No edema. No intracranial mass, mass effect, or midline shift. Ventricles: Unremarkable. No ventriculomegaly. Bones/joints: Unremarkable. No acute fracture. Soft tissues: Unremarkable. Sinuses: Right maxillary sinus versus mucus retention cyst. Mastoid air cells: Unremarkable as visualized. No mastoid effusion. IMPRESSION: No acute intracranial abnormality. 03/24/17 23:[address] Paiz, who is aware and agrees with plan. Accepts pt in to his service. Pt will go to Telemetry observation for chest pain and uncontrolled hypertension. president finance company paged. Requests Dr. Horn on consult. 03/24/17 23:15 Case discussed with electromedical equipment technician youth nutritional monitor, who is aware and agrees with plan. - Lab Interpretations Lab Results: 03/24/17 20:30 03/24/17 20:30 Lab Results 03/24/17 20:30: WBC 7.3 D, RBC 4.91, Hgb 15.2, Hct 44.8, MCV 91.2, MCH 31.0, MCHC 33.9, RDW 14.6 H, Plt Count 242, MPV 9.1 03/24/17 20:30: Sodium 140, Potassium 3.5 L, Chloride 101, Carbon Dioxide 29, Anion Gap 14, BUN 9, Creatinine 1.2, Est GFR ( Amer) > 60, Est GFR (Non- Af Amer) > 60, Random Glucose 92, Calcium 10.7 H, Total Bilirubin 0.4, AST 45, ALT 84 H, Alkaline Phosphatase 71, Lactate Dehydrogenase 444, Total Creatine Kinase 184, Troponin I < 0.01 D, Total Protein 7.6, Albumin 4.5, Globulin 3.1, Albumin/Globulin Ratio 1.4 03/24/17 20:30: PT 11.7, INR 1.03, APTT 35.5 - RAD Interpretation Radiology Orders: 03/24/17 20:04 HEAD W/O CONTRAST [CT] Stat 03/24/17 20:05 CHEST PORTABLE [RAD] Stat - EKG Interpretation Interpreted by ED Physician: Yes Type: 12 lead EKG - Medication Orders Current Medication Orders: Losartan Potassium (Cozaar) 50 mg PO DAILY ONIEL Discontinued Medications Acetaminophen (Tylenol 325mg Tab) 650 mg PO STAT STA Stop: 03/24/17 23:27 Last Admin: 03/24/17 23:34 Dose: 650 mg Clopidogrel Bisulfate (Plavix) 75 mg PO STAT STA Stop: 03/24/17 23:13 Last Admin: 03/24/17 23:33 Dose: 75 mg Ibuprofen (Motrin Tab) 800 mg PO STAT STA Stop: 03/25/17 01:16 Metoprolol Tartrate (Lopressor) 25 mg PO STAT STA Stop: 03/24/17 23:14 Last Admin: 03/24/17 23:34 Dose: 25 mg MAR Pulse and Blood Pressure Document 03/24/17 23:34 JOL (Rec: 03/24/17 23:34 [id number]) Blood Pressure Blood Pressure (100/60-150/90 mm Hg) 150/93 - Scribe Statement The provider has reviewed the documentation as recorded by the Hennyibsneha Dahl All medical record entries made by the Hennyibsneha were at my direction and personally dictated by me. I have reviewed the chart and agree that the record accurately reflects my personal performance of the history, physical exam, medical decision making, and the department course for this patient. I have also personally directed, reviewed, and agree with the discharge instructions and disposition. Disposition/Present on Arrival - Present on Arrival Any Indicators Present on Arrival: No History of DVT/PE: No History of Uncontrolled Diabetes: No Urinary Catheter: No History of Decub. Ulcer: No History Surgical Site Infection Following: None - Disposition Have Diagnosis and Disposition been Completed?: Yes Diagnosis: Chest pain, Labile hypertension Disposition: HOSPITALIZED Disposition Time: 23:14 Patient Plan: Observation Patient Problems: Current Active Problems Problem Status Onset Chest pain Acute Labile hypertension Acute Condition: STABLE
--- NOTE | 2017-03-24 22:54 | CT ---
EXAM: CT Head Without Intravenous Contrast CLINICAL HISTORY: 51 years old, male; Pain; Headache; Headache not specified TECHNIQUE: Axial computed tomography images of the head/brain without intravenous contrast. All CT scans at this facility use one or more dose reduction techniques, viz.: automated exposure control; ma/kV adjustment per patient size (including targeted exams where dose is matched to indication; i.e. head); or iterative reconstruction technique. Coronal and sagittal reformatted images were created and reviewed. COMPARISON: No relevant prior studies available. FINDINGS: Brain: Unremarkable. No significant white matter disease. No edema. No intracranial mass, mass effect, or midline shift. Ventricles: Unremarkable. No ventriculomegaly. Bones/joints: Unremarkable. No acute fracture. Soft tissues: Unremarkable. Sinuses: Right maxillary sinus versus mucus retention cyst. Mastoid air cells: Unremarkable as visualized. No mastoid effusion. IMPRESSION: No acute intracranial abnormality.
--- NOTE | 2017-03-25 03:08 | CP.PCM.HP ---
History of Present Illness - History of Present Illness History of Present Illness: Chief Complaint: headache and high blood pressure HPI: 51 year old male past medical history of PUD, chronic migraines, and hypertension presents with complaints of headache and syncopal episode. Patient states that two days ago he was awoken up from his sleep around 1:00 a.m. with an intense headache. Patient states that he woke up to place a hating pad behind his head and then attempted to go back to sleep. When he woke up again the second time in the morning he proceeded to go into the kitchen when he passed out. States prior to passing out he saw black dots which he normally experiences when he is experiencing really bad migraines. Patient states he possibly loss consciousness he isn't sure. States he has experienced this twice in the past. PMD: Dr. Paiz Surgical history:Right meniscus repair, Sinus surgery, Left ankle surgery Social history: chewed tobacco for over 40 years, drinks occasionally: had a few shots of liqour the night before syncopal episode, denies illicit drug abuse. Medications: please refer to MAR. Patient not compliant with medications Family history: non-contributory Present on Admission - Present on Admission Any Indicators Present on Admission: No Review of Systems - Constitutional Constitutional: Headache. absent: Chills, Fever - EENT Eyes: Change in Vision, Floaters. absent: Blurred Vision Nose/Mouth/Throat: absent: Nasal Congestion, Nasal Discharge - Cardiovascular Cardiovascular: Syncope. absent: Chest Pain, Dyspnea - Respiratory Respiratory: absent: Cough, Dyspnea - Gastrointestinal Gastrointestinal: absent: Abdominal Pain, Diarrhea, Nausea, Vomiting - Genitourinary Genitourinary: absent: Difficulty Urinating, Dysuria - Musculoskeletal Musculoskeletal: absent: Arthralgias, Back Pain - Neurological Neurological: Headaches, Syncope. absent: Dizziness, Numbness, Loss of Vision - Psychiatric Psychiatric: Anxiety. absent: Anhedonia Past Patient History - Infectious Disease Hx of Infectious Diseases: None - Tetanus Immunizations Tetanus Immunization: Unknown - Past Social History Smoking Status: Never Smoked - CARDIAC Hx Cardiac Disorders: Yes Hx Hypertension: Yes - PULMONARY Hx Respiratory Disorders: Yes Hx Bronchitis: Yes - NEUROLOGICAL Hx Neurological Disorder: Yes Hx Migraine: Yes - HEENT Hx HEENT Problems: Yes (Sinusitis, sinus surgery, ringing in the ears) Hx Sinusitis: Yes - RENAL Hx Chronic Kidney Disease: No - ENDOCRINE/METABOLIC Hx Endocrine Disorders: No - HEMATOLOGICAL/ONCOLOGICAL Hx Blood Disorders: No - INTEGUMENTARY Hx Dermatological Problems: No - MUSCULOSKELETAL/RHEUMATOLOGICAL Hx Musculoskeletal Disorders: Yes Hx Falls: No Hx Fractures: Yes (Left ankle with surgery) Hx Unsteady Gait: No - GASTROINTESTINAL Hx Gastrointestinal Disorders: Yes Hx Gastroesophageal Reflux: Yes - GENITOURINARY/GYNECOLOGICAL Hx Genitourinary Disorders: No - PSYCHIATRIC Hx Psychophysiologic Disorder: Yes Hx Anxiety: Yes Hx Substance Use: No - SURGICAL HISTORY Hx Mastectomy: No Hx Musculoskeletal Surgery: Yes Hx Orthopedic Surgery: Yes (right knee) - ANESTHESIA Hx Anesthesia Reactions: No Hx Malignant Hyperthermia: No Meds Allergies/Adverse Reactions: Allergies Allergy/AdvReac Type Severity Reaction Status Date / Time aspirin Allergy RASH Verified 03/24/17 19:05 Physical Exam - Constitutional Appears: Non-toxic, No Acute Distress - Head Exam Head Exam: ATRAUMATIC, NORMAL INSPECTION, NORMOCEPHALIC - Eye Exam Eye Exam: EOMI, Normal appearance, PERRL - ENT Exam ENT Exam: Mucous Membranes Moist - Respiratory Exam Respiratory Exam: Clear to Auscultation Bilateral, NORMAL BREATHING PATTERN. absent: Rhonchi, Wheezes - Cardiovascular Exam Cardiovascular Exam: REGULAR RHYTHM, +S1, +S2 - GI/Abdominal Exam GI & Abdominal Exam: Normal Bowel Sounds, Soft - Extremities Exam Extremities exam: Positive for: normal inspection - Back Exam Back exam: NORMAL INSPECTION - Neurological Exam Neurological exam: Alert, CN II-XII Intact, Oriented x3 - Psychiatric Exam Psychiatric exam: Normal Affect, Normal Mood - Skin Skin Exam: Intact, Normal Color, Warm Results - Vital Signs Recent Vital Signs: Last Vital Signs Temp 98.3 F 03/25/17 00:49 Pulse 77 03/25/17 00:49 Resp 20 03/25/17 00:49 BP 140/97 H 03/25/17 00:49 Pulse Ox 97 03/25/17 00:19 - Labs Result Diagrams: 03/25/17 06:45 03/25/17 06:45 Assessment & Plan - Assessment and Plan (Free Text) Assessment: 51 year old male past medical history of PUD, chronic migraines, and hypertension presents with complaints of headache and syncopal episode. Plan: Syncope -Echocardiogram ordered;results pending -Carotid doppler ordered;results pending -Orthostatic vitals signs -Cardiology consulted; recommendations appreciated -Neurology consulted; recommendations appreciated Headache -Band like around forehead extending to neck, tension headache: treat with NSAIDs -Neurology consulted; recommendations appreciated -Fioricit -Mysoline -Topamax Hypertension -Currently stable, continue to monitor -Continue with Losartan Anxiety -continue with klonopin DVT/GI prophylaxis Lovenox/Pepcid
[2017-03-25] MEDS ORDERED: Potassium Chloride 20 mEq ER Tab PO ONE ×2 (03:52→15:31)
[2017-03-25] MEDS ORDERED: Apap-Butalbital-Caffeine 325-50-40mg Tab PO SCH (06:00)
[2017-03-25 07:10] LABS: BASO # 0.04 K/mm3 (0.0-2.0); BASO % 0.8 % (0.0-3.0); EOS # 0.1 (0.0-0.7); EOS % 2.7 % (1.5-5.0); GRAN # 2.26 (1.4-6.5); GRAN % 47.8 % (50.0-68.0); HEMOGLOBIN 15.1 g/dL (14.0-18.0); LYMPH # 1.8 (1.2-3.4); LYMPH % 38.1 % (22.0-35.0); MEAN CELL VOLUME 91.9 fl (80.0-105.0); MEAN CORPUSCULAR HEMOGLOBIN 30.8 pg (25.0-35.0); MEAN CORPUSCULAR HGB CONC 33.5 g/dl (31.0-37.0); MEAN PLATELET VOLUME 9.2 fl (7.0-11.0); MONO # 0.5 (0.1-0.6); MONO % 10.6 % (1.0-6.0); RBC 4.91 10^6/uL (3.5-6.1); RED CELL DISTRIBUTION WIDTH 14.9 % (11.5-14.5); WHITE BLOOD COUNT 4.7 10^3/ul (4.5-11.0)
[2017-03-25 07:32] LABS: TROPONIN I < 0.01 ng/mL
[2017-03-25 07:51] LABS: ALB/GLOB RATIO 1.4 (1.1-1.8); ALBUMIN 4.2 g/dL (3.0-4.8); ALT/SGPT 73 U/L (7-56); AST/SGOT 37 U/L (17-59); BLOOD UREA NITROGEN 11 mg/dL (7-21); CALCIUM 10.3 mg/dL (8.4-10.5); GFR AFRICAN-AMERICAN > 60; GFR NON-AFRICAN AMERICAN > 60; MAGNESIUM 1.9 mg/dL (1.7-2.2)
--- NOTE | 2017-03-25 09:06 | CP.PCM.CON ---
<JuanjoNga - Last Filed: 03/25/17 13:10> History of Present Illness - History of Present Illness History of Present Illness: PGY-[address] Hair Neurology Consult: Fall, r/o syncope Mr Jose David Adkins, 51 AA M, Tobacco chewer, recently underwent R knee menisus repair, with PMH Migraine, tinnitus, HTN, Hx GI bleed from PUD/GERD c/o headache and Fall. Patient states that two days ago he was awoken up from his sleep around 1:00 a.m. with an intense headache. Patient states that he woke up to place a hating pad behind his head and the headache has kept him from sleeping. As sun began to rise, he got out of bed. As he walked to the kitchen, he fell in the hallway. Denied LOC, dizziness, change of vision, sudden weakness. Pt is able to get himself up after the fall and drove to [facility]. He took blood pressure at [facility] aide is noted 158/108. Pt mentioned that his hand tremor was getting worse in the past year that he dropped things and had a hard time writing legibly Head CT: No acute intracranial abnormality ROS (+) headache with occasional dark spots and photophobia (+) hand tremor Denies change of vision, tinnitus, PMH HTN Migraine GERD, Peptic ulcer disease, Hx GI bleed PSH R meniscus repair, R knee, 02/17/17 Sinus surgery L ankle surgery FH Father - DM. Mother - HTN SH Chew tobacco x 40 years 2-3 beer everyday Denied illicit drugs Allergy ASPIRIN Med Valsartan, Crestor Protonix/Dexilant, Folic acid, D2 Xyzal Clonazepam Fioricet Zolpidem Past Patient History - Infectious Disease Hx of Infectious Diseases: None - Tetanus Immunizations Tetanus Immunization: Unknown - Past Social History Smoking Status: Never Smoked - CARDIAC Hx Cardiac Disorders: Yes Hx Hypertension: Yes - PULMONARY Hx Respiratory Disorders: Yes Hx Bronchitis: Yes - NEUROLOGICAL Hx Neurological Disorder: Yes Hx Migraine: Yes - HEENT Hx HEENT Problems: Yes (Sinusitis, sinus surgery, ringing in the ears) Hx Sinusitis: Yes - RENAL Hx Chronic Kidney Disease: No - ENDOCRINE/METABOLIC Hx Endocrine Disorders: No - HEMATOLOGICAL/ONCOLOGICAL Hx Blood Disorders: No - INTEGUMENTARY Hx Dermatological Problems: No - MUSCULOSKELETAL/RHEUMATOLOGICAL Hx Musculoskeletal Disorders: Yes Hx Falls: No Hx Fractures: Yes (Left ankle with surgery) Hx Unsteady Gait: No - GASTROINTESTINAL Hx Gastrointestinal Disorders: Yes Hx Gastroesophageal Reflux: Yes - GENITOURINARY/GYNECOLOGICAL Hx Genitourinary Disorders: No - PSYCHIATRIC Hx Psychophysiologic Disorder: Yes Hx Anxiety: Yes Hx Substance Use: No - SURGICAL HISTORY Hx Mastectomy: No Hx Musculoskeletal Surgery: Yes Hx Orthopedic Surgery: Yes (right knee) - ANESTHESIA Hx Anesthesia Reactions: No Hx Malignant Hyperthermia: No Meds Allergies/Adverse Reactions: Allergies Allergy/AdvReac Type Severity Reaction Status Date / Time aspirin Allergy RASH Verified 03/24/17 19:05 - Medications Medications: Current Medications Acetaminophen/Butalbital/Caffeine (Fioricet) 1 tab PO Q8 [facility] Last Admin: 03/25/17 06:51 Dose: 1 tab Atorvastatin Calcium (Lipitor) 20 mg PO DIN [facility] Clonazepam (Klonopin) 0.5 mg PO DAILY [facility] PRN Reason: Protocol Clopidogrel Bisulfate (Plavix) 75 mg PO DAILY [facility] Losartan Potassium (Cozaar) 50 mg PO DAILY [facility] Last Admin: 03/25/17 02:00 Dose: 50 mg Zolpidem Tartrate (Ambien) 10 mg PO HS [facility] PRN Reason: Protocol Physical Exam - Constitutional Appears: Well - Head Exam Head Exam: ATRAUMATIC, NORMAL INSPECTION, NORMOCEPHALIC - Eye Exam Eye Exam: EOMI, Normal appearance, PERRL. absent: Scleral icterus Pupil Exam: NORMAL ACCOMODATION - ENT Exam ENT Exam: Mucous Membranes Moist - Neck Exam Additional comments: supple - Respiratory Exam Respiratory Exam: Clear to Auscultation Bilateral, NORMAL BREATHING PATTERN - Cardiovascular Exam Cardiovascular Exam: REGULAR RHYTHM, +S1, +S2 - GI/Abdominal Exam GI & Abdominal Exam: Normal Bowel Sounds, Soft. absent: Tenderness - Extremities Exam Extremities exam: Positive for: normal inspection. Negative for: calf tenderness, pedal edema, pedal pulses present - Neurological Exam Neurological exam: Alert, CN II-XII Intact, Oriented x3 Additional comments: Speech: fluent, no slurring recall: 2/3 Motor: 5/5, resting tremor with slight intentional tremor Sensory: intact DTR: 2 Rapid-alternating movement: intact [id number] coordination: intact - Psychiatric Exam Psychiatric exam: Normal Affect, Normal Mood - Skin Skin Exam: Dry, Warm Results - Vital Signs Recent Vital Signs: Last Vital Signs Temp 98.7 F 03/25/17 06:00 Pulse 72 03/25/17 06:00 Resp 18 03/25/17 06:00 BP 134/85 03/25/17 06:00 Pulse Ox 96 03/25/17 06:00 - Labs Result Diagrams: 03/25/17 06:45 03/25/17 06:45 Labs: Laboratory Results - last 24 hr 03/25/17 03/25/17 03/25/17 06:45 06:45 06:45 WBC 4.7 D RBC 4.91 Hgb 15.1 Hct 45.1 MCV 91.9 MCH 30.8 MCHC 33.5 RDW 14.9 H Plt Count 232 MPV 9.2 Gran % 47.8 L Lymph % (Auto) 38.[address] [place] % (Auto) 10.6 H Eos % (Auto) 2.7 Baso % (Auto) 0.8 Gran # 2.26 Lymph # 1.8 [place] # 0.5 Eos # 0.1 Baso # 0.04 Sodium 143 Potassium 3.7 Chloride 105 Carbon Dioxide 27 Anion Gap 15 BUN 11 Creatinine 1.1 Est GFR ( Amer) > 60 Est GFR (Non-Af Amer) > 60 Random Glucose 89 Calcium 10.3 Phosphorus 4.6 H Magnesium 1.9 Total Bilirubin 0.6 AST 37 ALT 73 H Alkaline Phosphatase 63 Lactate Dehydrogenase 407 Total Creatine Kinase 193 Troponin I < 0.01 Total Protein 7.2 Albumin 4.2 Globulin 3.0 Albumin/Globulin Ratio 1.4 Assessment & Plan - Assessment and Plan (Free Text) Plan: Mr Jose David Adkins, 51 AA M, Tobacco chewer, recently underwent R knee menisus repair, with PMH Migraine, tinnitus, HTN, Hx GI bleed from PUD/GERD c/o headache and Fall. Pt mentioned that his hand tremor was getting worse in the past year that he dropped things and had a hard time writing legibly. Fall likely mechanical from deconditioned state s/p recent R knee surgery - PT/OT/OOB for strengthening - Carotid U/S - Orthostatic VS Migraine, acute - Head CT: No acute intracranial abnormality - MRI brain: Minimal R frontal white matter changes, nonspecific, chronic microangiopathic changes vs migraine vs fliosis No evidence of occlusion, stenosis, accular aneurysm - MRA head: Dolichoectasia of basilar artery, L vertebral a dominant - Topamax 25mg HS at 7pm for headache prevention maintenance - Fioricet PRN for breakthough migraine Essential tremor - Mysolin 50 HS s/r/d/w Dr. Hair <Ky Hair - Last Filed: 03/25/17 14:34> Meds - Medications Medications: Current Medications Acetaminophen/Butalbital/Caffeine (Fioricet) 1 tab PO Q8 PRN PRN Reason: Migraine headache Atorvastatin Calcium (Lipitor) 20 mg PO DIN [facility] Clonazepam (Klonopin) 0.5 mg PO DAILY [facility] PRN Reason: Protocol Last Admin: 03/25/17 11:03 Dose: 0.5 mg Clopidogrel Bisulfate (Plavix) 75 mg PO DAILY [facility] Last Admin: 03/25/17 11:03 Dose: 75 mg Enoxaparin Sodium (Lovenox) 80 mg SC Q12H [facility] PRN Reason: Protocol Famotidine (Pepcid) 20 mg IVP DAILY [facility] Sodium Chloride (Sodium Chloride 0.45%) 1,000 mls @ 60 mls/hr IV .[id number] [facility] Losartan Potassium (Cozaar) 50 mg PO DAILY [facility] Last Admin: 03/25/17 11:03 Dose: 50 mg Primidone (Mysoline) 50 mg PO HS [facility] Topiramate (Topamax) 25 mg PO HS [facility] PRN Reason: Protocol Zolpidem Tartrate (Ambien) 10 mg PO HS [facility] PRN Reason: Protocol Results - Vital Signs Recent Vital Signs: Last Vital Signs Temp 98.7 F 03/25/17 06:00 Pulse 70 03/25/17 11:03 Resp 18 03/25/17 06:00 BP 135/84 03/25/17 11:03 Pulse Ox 96 03/25/17 06:00 - Labs Result Diagrams: 03/25/17 06:45 03/25/17 06:45 Labs: Laboratory Results - last 24 hr 03/25/17 03/25/17 03/25/17 06:45 06:45 06:45 WBC 4.7 D RBC 4.91 Hgb 15.1 Hct 45.1 MCV 91.9 MCH 30.8 MCHC 33.5 RDW 14.9 H Plt Count 232 MPV 9.2 Gran % 47.8 L Lymph % (Auto) 38.[address] [place] % (Auto) 10.6 H Eos % (Auto) 2.7 Baso % (Auto) 0.8 Gran # 2.26 Lymph # 1.8 [place] # 0.5 Eos # 0.1 Baso # 0.04 Sodium 143 Potassium 3.7 Chloride 105 Carbon Dioxide 27 Anion Gap 15 BUN 11 Creatinine 1.1 Est GFR ( Amer) > 60 Est GFR (Non-Af Amer) > 60 Random Glucose 89 Calcium 10.3 Phosphorus 4.6 H Magnesium 1.9 Total Bilirubin 0.6 AST 37 ALT 73 H Alkaline Phosphatase 63 Lactate Dehydrogenase 407 Total Creatine Kinase 193 Troponin I < 0.01 Total Protein 7.2 Albumin 4.2 Globulin 3.0 Albumin/Globulin Ratio 1.4 Attending/Attestation - Attestation I have personally seen and examined this patient.: Yes I have fully participated in the care of the patient.: Yes I have reviewed all pertinent clinical information: Yes
--- NOTE | 2017-03-25 09:31 | RAD ---
HISTORY: Chest pain COMPARISON: 10/04/2016. FINDINGS: LUNGS: The lungs are well inflated and clear. PLEURA: No significant pleural effusion identified, no pneumothorax apparent. CARDIOVASCULAR: Normal. OSSEOUS STRUCTURES: No significant abnormalities. VISUALIZED UPPER ABDOMEN: Normal. OTHER FINDINGS: None. IMPRESSION: No active pulmonary disease.
[2017-03-25] MEDS ORDERED: Gadodiamide 287 MG/ML VIAL (15ML) IV ONE (10:15)
--- NOTE | 2017-03-25 10:55 | MRI ---
PROCEDURE: MRI BRAIN WITH AND WITHOUT CONTRAST HISTORY: Syncope COMPARISON: None. TECHNIQUE: Multiplanar, multisequence MR images of the brain were obtained with and without intravenous contrast enhancement. 15 mL Omniscan was injected intravenously. FINDINGS: HEMORRHAGE: None DWI: No evidence of an acute or early subacute infarction. BRAIN PARENCHYMA: Stock-white matter differentiation is preserved. There is no mass, mass effect or abnormal extra-axial fluid collection. There are few T2/FLAIR hyperintense foci in the right subcortical and deep frontal white matter. There is no territorial infarction. The midline sagittal structures are normal. ENHANCEMENT: No abnormal intracranial enhancement. VENTRICLES: The ventricles are normal in size, shape and configuration. CRANIUM: There is normal bone marrow signal pattern. ORBITS: Grossly unremarkable. PARANASAL SINUSES/MASTOIDS: There is mild mucosal thickening in the paranasal sinuses and a large retention cyst/ polyp in the left maxillary sinus. VASCULAR SYSTEM: There are normal signal voids in the larger intracranial arteries. OTHER FINDINGS: None . IMPRESSION: No acute intracranial abnormality. Minimal right frontal white matter changes are strictly nonspecific and statistically in this age group most compatible with early chronic microangiopathic changes. The other differential considerations include migraine headache effect and gliosis amongst others.
--- NOTE | 2017-03-25 11:13 | MRI ---
PROCEDURE: Magnetic Resonance Angiography Brain HISTORY: Syncope COMPARISON: None available. TECHNIQUE: 3D time of flight MR angiography of the intracranial arteries was performed. Rotating maximum intensity projection images were generated. FINDINGS: INTERNAL CAROTID ARTERIES: Normal flow related signal. The skull base, petrous, cavernous and supraclinoid segments are bilaterally widely patient. ANTERIOR CEREBRAL ARTERIES: Normal flow related signal. A1 and A2 segments are widely patent. Smaller distal branches unremarkable, as visualized. MIDDLE CEREBRAL ARTERIES: Normal flow related signal. M1 and M2 segments are widely patent. Perisylvian branches grossly symmetric. POSTERIOR CIRCULATION: Basilar Artery: Dolichoectasia of the basilar artery. Distal Vertebral Arteries: Normal flow related signal. The left vertebral artery is dominant. Posterior Cerebral Arteries: Normal flow related signal. Posterior Inferior Cerebellar Arteries: Normal flow related signal. ANEURYSM/ VASCULAR MALFORMATIONS: None. OTHER FINDINGS: None. IMPRESSION: No evidence of occlusion, stenosis or saccular aneurysm. Dolichoectasia of the basilar artery. The left vertebral artery is dominant.
[2017-03-25] MEDS ORDERED: Apap-Butalbital-Caffeine 325-50-40mg Tab PO PRN (12:22)
[2017-03-25] MEDS ORDERED: Enoxaparin 80 mg Syringe SC SCH (13:45)
--- NOTE | 2017-03-25 14:34 | US ---
PROCEDURE: Bilateral carotid artery duplex ultrasound HISTORY: Carotid stenosis syncope PHYSICIAN(S): Jaime Mendez MD. TECHNIQUE: Duplex sonography and color-flow Doppler were used to evaluate the carotid bifurcations and limited segments of the vertebral arteries bilaterally. FINDINGS: There is mild smooth heterogeneous plaque noted at the carotid bifurcations bilaterally. The peak systolic velocity in the proximal right internal carotid artery is 79 cm/sec. This corresponds to a 20 to 39% proximal right ICA stenosis. Normal systolic velocities are noted in the proximal right external carotid artery. There is antegrade flow in the right vertebral artery. The peak systolic velocity in the proximal left internal carotid artery is 58 cm/sec. This corresponds to a 20 to 39% proximal left ICA stenosis. Normal systolic velocities are noted in the proximal left external carotid artery. There is antegrade flow in the left vertebral artery. Is there are bilateral hypoechoic hypervascular masses spleen the carotid bifurcations. 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 The right carotid body tumor measures 2 cm in the left carotid body tumor measures 4 cm. Encasement of the vessels is not appreciated. IMPRESSION: 1. Bilateral hypoechoic hypervascular masses that splay the carotid bifurcations. The appearances consistent with carotid body tumors. CT or MRI evaluation is recommended 2. Bilateral 20-39 percent proximal ICA stenoses. 3. Antegrade flow in both vertebral arteries.
--- NOTE | 2017-03-25 14:38 | CP.PCM.CON ---
History of Present Illness - History of Present Illness History of Present Illness: Vascular Surgery Consult for Dr. Stock This patient is a 51 year old male with a PMHx of PUD, chronic migraines, HTN, and sinusitis who presented with complaints of headache w/ elevated blood pressure x 1 day. When patient checked his blood pressure he found it to be 158/108. On second check, patient stated his BP read 147/111. Patient admits to getting lightheaded and falling while going to the kitchen in the middle of the night. He denies any loss of consciousness or head trauma. He also attributes the fall to a weak right leg secondary to a recently repaired meniscus. Vascular surgery was consulted on this patient for evaluation of a carotid body mass as seen on US. ROS: POSITIVES: Right knee pain NEGATIVES: Headache, lightheadedness, dizziness, SOB, neck pain, chest pain, sob, palpitations, abdominal pain, nausea, vomiting, focal weakness, or sensory loss. PMHx: PUD, chronic migraines, HTN, sinusitis, unspecified radiculopathy of right arm (likely Ulnar) PSHx: Menisucus repair on right leg (2016), left ankle surgery (1990), Left Hand Surgery (1998), Sinusitis surgery (2002) Allergies: ASA, Hay fever, Ragweed Social Hx: Chewed tobacco for over 40 years, drinks occasionally. denies illicit drug use Fam Hx: Non-Con Meds: Reviewed Review of Systems - Review of Systems Review of Systems: As per HPI Past Patient History - Infectious Disease Hx of Infectious Diseases: None - Tetanus Immunizations Tetanus Immunization: Unknown - Past Social History Smoking Status: Never Smoked - CARDIAC Hx Cardiac Disorders: Yes Hx Hypertension: Yes - PULMONARY Hx Respiratory Disorders: Yes Hx Bronchitis: Yes - NEUROLOGICAL Hx Neurological Disorder: Yes Hx Migraine: Yes - HEENT Hx HEENT Problems: Yes (Sinusitis, sinus surgery, ringing in the ears) Hx Sinusitis: Yes - RENAL Hx Chronic Kidney Disease: No - ENDOCRINE/METABOLIC Hx Endocrine Disorders: No - HEMATOLOGICAL/ONCOLOGICAL Hx Blood Disorders: No - INTEGUMENTARY Hx Dermatological Problems: No - MUSCULOSKELETAL/RHEUMATOLOGICAL Hx Musculoskeletal Disorders: Yes Hx Falls: No Hx Fractures: Yes (Left ankle with surgery) Hx Unsteady Gait: No - GASTROINTESTINAL Hx Gastrointestinal Disorders: Yes Hx Gastroesophageal Reflux: Yes - GENITOURINARY/GYNECOLOGICAL Hx Genitourinary Disorders: No - PSYCHIATRIC Hx Psychophysiologic Disorder: Yes Hx Anxiety: Yes Hx Substance Use: No - SURGICAL HISTORY Hx Mastectomy: No Hx Musculoskeletal Surgery: Yes Hx Orthopedic Surgery: Yes (right knee) - ANESTHESIA Hx Anesthesia Reactions: No Hx Malignant Hyperthermia: No Meds Allergies/Adverse Reactions: Allergies Allergy/AdvReac Type Severity Reaction Status Date / Time aspirin Allergy RASH Verified 03/24/17 19:05 - Medications Medications: Current Medications Acetaminophen/Butalbital/Caffeine (Fioricet) 1 tab PO Q8 PRN PRN Reason: Migraine headache Atorvastatin Calcium (Lipitor) 20 mg PO DIN [facility] Clonazepam (Klonopin) 0.5 mg PO DAILY [facility] PRN Reason: Protocol Last Admin: 03/25/17 11:03 Dose: 0.5 mg Clopidogrel Bisulfate (Plavix) 75 mg PO DAILY [facility] Last Admin: 03/25/17 11:03 Dose: 75 mg Enoxaparin Sodium (Lovenox) 80 mg SC Q12H [facility] PRN Reason: Protocol Famotidine (Pepcid) 20 mg IVP DAILY [facility] Sodium Chloride (Sodium Chloride 0.45%) 1,000 mls @ 60 mls/hr IV .[id number] [facility] Losartan Potassium (Cozaar) 50 mg PO DAILY [facility] Last Admin: 03/25/17 11:03 Dose: 50 mg Primidone (Mysoline) 50 mg PO HS [facility] Topiramate (Topamax) 25 mg PO HS [facility] PRN Reason: Protocol Zolpidem Tartrate (Ambien) 10 mg PO HS [facility] PRN Reason: Protocol Physical Exam - Constitutional Appears: Well, Non-toxic, No Acute Distress - Head Exam Head Exam: ATRAUMATIC, NORMAL INSPECTION, NORMOCEPHALIC - Eye Exam Eye Exam: EOMI, Normal appearance, PERRL. absent: Scleral icterus - ENT Exam ENT Exam: Mucous Membranes Moist - Respiratory Exam Respiratory Exam: Clear to Auscultation Bilateral, NORMAL BREATHING PATTERN. absent: Rales, Rhonchi, Wheezes - Cardiovascular Exam Cardiovascular Exam: RRR, +S1, +S2. absent: JVD Additional comments: No carotid Bruit B/L. - GI/Abdominal Exam GI & Abdominal Exam: Normal Bowel Sounds, Soft. absent: Distended, Firm, Tenderness - Extremities Exam Extremities exam: Positive for: normal capillary refill, normal inspection, pedal pulses present. Negative for: pedal edema - Neurological Exam Neurological exam: Alert, CN II-XII Intact, Oriented x3 Additional comments: No Motor or sensory deficit. - Psychiatric Exam Psychiatric exam: Normal Affect - Skin Skin Exam: Dry, Intact, Normal Color, Warm Results - Vital Signs Recent Vital Signs: Last Vital Signs Temp 98.7 F 03/25/17 06:00 Pulse 70 03/25/17 11:03 Resp 18 03/25/17 06:00 BP 135/84 03/25/17 11:03 Pulse Ox 96 03/25/17 06:00 - Labs Result Diagrams: 03/25/17 06:45 03/25/17 06:45 Labs: Laboratory Results - last 24 hr 03/25/17 03/25/17 03/25/17 06:45 06:45 06:45 WBC 4.7 D RBC 4.91 Hgb 15.1 Hct 45.1 MCV 91.9 MCH 30.8 MCHC 33.5 RDW 14.9 H Plt Count 232 MPV 9.2 Gran % 47.8 L Lymph % (Auto) 38.1 H [place] % (Auto) 10.6 H Eos % (Auto) 2.7 Baso % (Auto) 0.8 Gran # 2.26 Lymph # 1.8 [place] # 0.5 Eos # 0.1 Baso # 0.04 Sodium 143 Potassium 3.7 Chloride 105 Carbon Dioxide 27 Anion Gap 15 BUN 11 Creatinine 1.1 Est GFR ( Amer) > 60 Est GFR (Non-Af Amer) > 60 Random Glucose 89 Calcium 10.3 Phosphorus 4.6 H Magnesium 1.9 Total Bilirubin 0.6 AST 37 ALT 73 H Alkaline Phosphatase 63 Lactate Dehydrogenase 407 Total Creatine Kinase 193 Troponin I < 0.01 Total Protein 7.2 Albumin 4.2 Globulin 3.0 Albumin/Globulin Ratio 1.4 Assessment & Plan - Assessment and Plan (Free Text) Assessment: This patient is a 51 year old male with a PMHx of PUD, chronic migraines, HTN, and sinusitis who presented with complaints of headache w/ elevated blood pressure x 1 day. Vascular surgery was consulted for b/l carotid body tumors as seen on ultrasound Plan: - f/u CT Angiogram head and neck - surgical options discussed with family and at bedside, they would like to speak to Dr. Stock to further discuss their options. - will d/w Dr. Montrell Ruiz - PGY1 Surgery
[2017-03-25] MEDS: Sodium Chloride 0.45% 1,000 ML IV SCH (17:09)
--- NOTE | 2017-03-25 17:28 | CARD ---
APPROVED REPORT EXAM: Two-dimensional and M-mode echocardiogram with Doppler and color Doppler. INDICATION Syncope 2D DIMENSIONS Left Atrium (2D)3.0 (1.6-4.0cm)IVSd1.1 (0.7-1.1cm) LVDd4.8 (3.9-5.9cm)PWd1.2 (0.7-1.1cm) LVDs3.4 (2.5-4.0cm)FS (%) 28.0 % LVEF (%)54.0 (>50%) M-Mode DIMENSIONS Aortic Root3.90 (2.2-3.7cm)Aortic Cusp Exc.2.20 (1.5-2.0cm) Aortic Valve AoV Peak Dcjqozoq447.0cm/Tricia Peak GR.8mmHg Mitral Valve MV E Sjrqegqr72.9cm/sMV A Yzgoefqb64.8cm/sE/A ratio0.8 TDI Lateral E' Peak V9.94cm/sMedial E' Peak V6.14cm/sE/Lateral E'5.5 E/Medial E'8.9 Pulmonary Valve PV Peak Kzjvwahf84.5cm/sPV Peak Grad.2mmHg Tricuspid Valve TR Peak Yypbjeci679yo/sRAP PLJEDNFR60gjIgOY Peak Gr.24mmHg [id number] LEFT VENTRICLE The left ventricle is normal size. There is normal left ventricular wall thickness. The left ventricular function is normal. The left ventricular ejection fraction is within the normal range. There is normal LV segmental wall motion. Transmitral Doppler flow pattern is Grade I-abnormal relaxation pattern. RIGHT VENTRICLE The right ventricle is normal size. There is normal right ventricular wall thickness. The right ventricular systolic function is normal. ATRIA The left atrium size is normal. The right atrium size is normal. AORTIC VALVE The aortic valve is normal in structure. No aortic regurgitation is present. There is no aortic valvular stenosis. MITRAL VALVE The mitral valve is normal in structure. Mitral regurgitation is trace. TRICUSPID VALVE There is mild tricuspid regurgitation. There is mild pulmonary hypertension. GREAT VESSELS The aortic root is mildly enlarged. The IVC was not visualized. PERICARDIAL EFFUSION There is no pericardial effusion. <Conclusion> The left ventricle is normal size. There is normal left ventricular wall thickness. The left ventricular function is normal. The left ventricular ejection fraction is within the normal range. There is normal LV segmental wall motion. Transmitral Doppler flow pattern is Grade I-abnormal relaxation pattern. There is mild tricuspid regurgitation. There is mild pulmonary hypertension. The aortic root is mildly enlarged.
--- NOTE | 2017-03-25 18:15 | CARD ---
APPROVED REPORT EKG Measurement Heart [id number] <Conclusion> Normal sinus rhythm Moderate voltage criteria for LVH, may be normal variant Nonspecific ST and T wave abnormality Abnormal ECG
--- NOTE | 2017-03-25 18:43 | CT ---
PROCEDURE: CT angiogram of the neck and brain dated 03/25/2017 HISTORY: Carotid body tumor. COMPARISON: Correlation made with carotid Doppler exam earlier same day TECHNIQUE: Contiguous helical/transaxial images of the neck were obtained from the level of the skull-base to the superior mediastinum in the arteriographic phase of enhancement. Coronal and sagittal reformats or also generated. IV contrast dose: 36 cc of Omnipaque 350 contrast material. Radiation Dose - DLP: 584.57 mGy-cm This CT exam was performed using one or more of the following dose reduction techniques: Automated exposure control, adjustment of the mA and/or kV according to patient size, and/or use of iterative reconstruction technique.. FINDINGS: The visualized portions of the aortic arch and origins of the great vessels widely patent without evidence of significant atherosclerotic disease. The common carotid arteries are widely patent. At the level of the left carotid bifurcation, there is a large somewhat elliptical shaped heterogeneously enhancing mass lesion which is located between the left internal and external carotid arteries extending posteriorly and laterally with the larger of the portion of the lesion extending posterolaterally. . This lesion which may represent a large carotid body tumor measures approximately 4.2 cm CC x 4.3 cm T x 2.7 cm AP. There is of resultant splaying of the internal and external carotid arteries as well as significant compression of the left jugular vein. Jugular bulb is poorly enhancing which could be secondary to slow flow related to compressive effects on the jugular vein by at aforementioned mass. On the right side, there is a similar but smaller heterogeneously enhancing mass which measures approximately located between the right internal and external carotid arteries that measures approximately 1.8 cm x 1.7 cm AP x 2.1 cm T also felt to represent a carotid body tumor. The distal internal carotid arteries including the petrous, cavernous and supraclinoid segments are widely patent without evidence of occlusion or significant stenosis. There is asymmetry of the cervical vertebral arteries, left-sided which is larger in caliber than the right felt to represent an anatomic variation. . . The basilar artery and posterior cerebral arteries are patent. Major branches of the [place] are patent as are the distal cerebral branches. OTHER FINDINGS: Note made of polypoid like mucosal thickening and/or mucous retention cyst formation left maxillary antrum with minor mucosal thickening right maxillary antrum. 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
--- NOTE | 2017-03-25 21:32 | CON ---
DATE: 03/25/2017 HISTORY OF PRESENT ILLNESS: The patient is a 51-year-old male who presented waking up at night with a headache. While ambulating around the floor, he apparently felt a little weak and fell to the floor with questionable syncope. The patient's past medical history is notable for an extensive cardiac evaluation, which was performed this past January. His stress test was within normal limits and revealed an ejection fraction of 59%. His echocardiogram revealed good LV function with no pulmonary hypertension. He denies diabetes mellitus. He takes blood pressure medication intermittently. He does suffer from hypercholesterolemia. He denies chest pain. SOCIAL HISTORY: The patient does not smoke. REVIEW OF SYSTEMS: A 14-point review of systems is free of cardiac symptomatology. PHYSICAL EXAMINATION: VITAL SIGNS: Blood pressure 134/85, heart rate is in the 70s. NECK: Negative JVD. LUNGS: Without rales. HEART: Reveals S1, S2. EXTREMITIES: Without edema. LABORATORY DATA: Includes an EKG which is unremarkable. Troponins are negative x2. BUN and creatinine are normal. Hemoglobin is 15.1. IMPRESSION: 1. Atypical chest pain. 2. No evidence of acute coronary syndrome. 3. Transient headache which has now resolved. 4. History of occasional hypertension. 5. Hypercholesterolemia. Given these findings, the patient's problem may be related to his intermittent compliance with blood pressure medications. I have discussed with the patient about his need to stay on the same medication as recommended and to be followed for his hypertension with consistent low-salt diet. We will discontinue telemetry today. No further cardiac workup is necessary. Jaime Horn MD
[2017-03-26] VITALS: RESP 20; TEMP 97.8
[2017-03-26 05:58] VITALS: BP 108/73; PULSE 82; O2SAT 96
[2017-03-26 06:24] LABS: BASO # 0.04 K/mm3 (0.0-2.0); EOS # 0.2 (0.0-0.7); EOS % 5.7 % (1.5-5.0); GRAN # 1.86 (1.4-6.5); HEMOGLOBIN 14.5 g/dL (14.0-18.0); LYMPH # 1.6 (1.2-3.4); LYMPH % 38.4 % (22.0-35.0); MEAN CELL VOLUME 92.7 fl (80.0-105.0); MEAN CORPUSCULAR HEMOGLOBIN 31.3 pg (25.0-35.0); MEAN CORPUSCULAR HGB CONC 33.8 g/dl (31.0-37.0); MEAN PLATELET VOLUME 9.3 fl (7.0-11.0); MONO # 0.4 (0.1-0.6); MONO % 8.9 % (1.0-6.0); RBC 4.63 10^6/uL (3.5-6.1)
[2017-03-26 06:56] LABS: LDL CHOLESTEROL 59 mg/dL (0-129)
[2017-03-26 06:58] LABS: FREE T4 0.77 ng/dL (0.78-2.19); T4 5.2 ug/dL (5.5-11.0)
[2017-03-26 07:03] LABS: ALB/GLOB RATIO 1.4 (1.1-1.8); ALBUMIN 3.8 g/dL (3.0-4.8); ALT/SGPT 57 U/L (7-56); AST/SGOT 34 U/L (17-59); BLOOD UREA NITROGEN 13 mg/dL (7-21); CALCIUM 9.8 mg/dL (8.4-10.5); GFR AFRICAN-AMERICAN > 60; GFR NON-AFRICAN AMERICAN > 60; HDL CHOLESTEROL 99 mg/dL (29-60)
[2017-03-26] MEDS: Sodium Chloride 0.45% 1,000 ML IV SCH ×2 (08:09→08:28)
[2017-03-26] MEDS ORDERED: Enoxaparin 40 mg Syringe SC SCH (10:00)
--- NOTE | 2017-03-26 10:10 | CP.PCM.PN ---
Subjective - Date & Time of Evaluation Date of Evaluation: 03/26/17 Time of Evaluation: 07:40 - Subjective Subjective: Vascular Surgery Progress note. Dr. Stock Pt seen and examined at bedside. No acute events events overnight. Patient is adamant on leaving by 11:30AM this morning in order to make his R knee physical therapy appointment. He denies any new complaints. No Dizziness, no headaches. Objective - Vital Signs/Intake and Output Vital Signs (last 24 hours): Temp Pulse Resp BP Pulse Ox 97.8 F 82 20 108/73 96 03/26/17 05:57 03/26/17 05:57 03/26/17 05:57 03/26/17 05:57 03/26/17 05:57 Intake and Output: 03/26/17 03/26/17 06:59 18:59 Intake Total 4387 Output Total 0 Balance 4387 - Medications Medications: Current Medications Acetaminophen/Butalbital/Caffeine (Fioricet) 1 tab PO Q8 PRN PRN Reason: Migraine headache Last Admin: 03/25/17 21:15 Dose: 1 tab Atorvastatin Calcium (Lipitor) 20 mg PO DIN [facility] Last Admin: 03/25/17 17:10 Dose: Not Given Clopidogrel Bisulfate (Plavix) 75 mg PO DAILY [facility] Last Admin: 03/25/17 11:03 Dose: 75 mg Enoxaparin Sodium (Lovenox) 40 mg SC DAILY [facility] PRN Reason: Protocol Sodium Chloride (Sodium Chloride 0.45%) 1,000 mls @ 60 mls/hr IV .[id number] [facility] Last Admin: 03/26/17 08:28 Dose: 60 mls/hr Losartan Potassium (Cozaar) 50 mg PO DAILY [facility] Last Admin: 03/25/17 11:03 Dose: 50 mg Pantoprazole Sodium (Protonix Ec Tab) 40 mg PO 0600 [facility] Primidone (Mysoline) 50 mg PO HS [facility] Last Admin: 03/25/17 21:14 Dose: 50 mg Topiramate (Topamax) 25 mg PO HS [facility] PRN Reason: Protocol Last Admin: 03/25/17 21:14 Dose: 25 mg Zolpidem Tartrate (Ambien) 10 mg PO HS [facility] PRN Reason: Protocol Last Admin: 03/25/17 21:14 Dose: 10 mg - Labs Labs: 03/26/17 05:20 03/26/17 05:20 PT 11.7 SECONDS (9.4-12.5) 03/24/17 20:30 INR 1.03 (0.93-1.08) 03/24/17 20:30 APTT 35.5 Seconds (25.1-36.5) 03/24/17 20:30 - Constitutional Appears: Well, Non-toxic, No Acute Distress - Head Exam Head Exam: ATRAUMATIC, NORMAL INSPECTION, NORMOCEPHALIC - Eye Exam Eye Exam: EOMI - ENT Exam ENT Exam: Mucous Membranes Moist - Respiratory Exam Respiratory Exam: NORMAL BREATHING PATTERN. absent: Accessory Muscle Use, Respiratory Distress - Cardiovascular Exam Cardiovascular Exam: absent: JVD - GI/Abdominal Exam GI & Abdominal Exam: Soft. absent: Distended, Firm, Guarding, Rigid, Tenderness - Extremities Exam Extremities Exam: Normal Inspection. absent: Calf Tenderness - Neurological Exam Neurological Exam: Alert, Awake, Oriented x3 - Psychiatric Exam Psychiatric exam: Normal Affect, Normal Mood - Skin Skin Exam: Dry, Intact, Normal Color, Warm Assessment and Plan - Assessment and Plan (Free Text) Assessment: 51yo M with bilateral carotid body masses - CTA neck noted Plan: - Patient plans to leave AMA today - Urged to follow up with Dr. Stock in order to discuss all possible surgical options Further recs as per Dr. Montrell Alvarez PGY1 surgery pager: [phone]
--- NOTE | 2017-03-26 11:10 | CP.PCM.PN ---
<Nga Geiger - Last Filed: 03/26/17 11:15> Subjective - Date & Time of Evaluation Date of Evaluation: 03/26/17 Time of Evaluation: 09:00 - Subjective Subjective: Neurology PGY-[address] Hair Pt is able to ambulate well. Headache much improved in evening and pain free today. No dizziness/fall Objective - Vital Signs/Intake and Output Vital Signs (last 24 hours): Temp Pulse Resp BP Pulse Ox 97.8 F 82 20 108/73 96 03/26/17 05:57 03/26/17 05:57 03/26/17 05:57 03/26/17 05:57 03/26/17 05:57 Intake and Output: 03/26/17 03/26/17 06:59 18:59 Intake Total 4387 Output Total 0 Balance 4387 - Medications Medications: Current Medications Acetaminophen/Butalbital/Caffeine (Fioricet) 1 tab PO Q8 PRN PRN Reason: Migraine headache Last Admin: 03/25/17 21:15 Dose: 1 tab Atorvastatin Calcium (Lipitor) 20 mg PO DIN [facility] Last Admin: 03/25/17 17:10 Dose: Not Given Clopidogrel Bisulfate (Plavix) 75 mg PO DAILY [facility] Last Admin: 03/25/17 11:03 Dose: 75 mg Enoxaparin Sodium (Lovenox) 40 mg SC DAILY [facility] PRN Reason: Protocol Sodium Chloride (Sodium Chloride 0.45%) 1,000 mls @ 60 mls/hr IV .[id number] [facility] Last Admin: 03/26/17 08:28 Dose: 60 mls/hr Losartan Potassium (Cozaar) 50 mg PO DAILY [facility] Last Admin: 03/25/17 11:03 Dose: 50 mg Pantoprazole Sodium (Protonix Ec Tab) 40 mg PO 0600 [facility] Primidone (Mysoline) 50 mg PO HS [facility] Last Admin: 03/25/17 21:14 Dose: 50 mg Topiramate (Topamax) 25 mg PO HS [facility] PRN Reason: Protocol Last Admin: 03/25/17 21:14 Dose: 25 mg Zolpidem Tartrate (Ambien) 10 mg PO HS [facility] PRN Reason: Protocol Last Admin: 03/25/17 21:14 Dose: 10 mg - Labs Labs: 03/26/17 05:20 03/26/17 05:20 PT 11.7 SECONDS (9.4-12.5) 03/24/17 20:30 INR 1.03 (0.93-1.08) 03/24/17 20:30 APTT 35.5 Seconds (25.1-36.5) 03/24/17 20:30 - Constitutional Appears: No Acute Distress - Head Exam Head Exam: ATRAUMATIC, NORMAL INSPECTION, NORMOCEPHALIC - Eye Exam Eye Exam: EOMI, Normal appearance, PERRL. absent: Scleral icterus Pupil Exam: NORMAL ACCOMODATION - ENT Exam ENT Exam: Mucous Membranes Moist - Neck Exam Neck Exam: Full ROM, Normal Inspection. absent: Lymphadenopathy - Respiratory Exam Respiratory Exam: Clear to Ausculation Bilateral, NORMAL BREATHING PATTERN - Cardiovascular Exam Cardiovascular Exam: REGULAR RHYTHM, +S1, +S2. absent: Murmur - GI/Abdominal Exam GI & Abdominal Exam: Soft, Normal Bowel Sounds. absent: Tenderness - Extremities Exam Extremities Exam: absent: Calf Tenderness, Pedal Edema - Neurological Exam Neurological Exam: Alert, Awake, CN II-XII Intact, Oriented x3 Additional comments: Speech: fluent, no slurring Motor: 5/5, resting tremor with slight intentional tremor Sensory: intact DTR: 2 Rapid-alternating movement: intact [id number] coordination: intact - Psychiatric Exam Psychiatric exam: Normal Affect, Normal Mood - Skin Skin Exam: Dry, Warm Assessment and Plan - Assessment and Plan (Free Text) Plan: Mr Jose David Adkins, 51 AA M, Tobacco chewer, recently underwent R knee menisus repair, with PMH Migraine, tinnitus, HTN, Hx GI bleed from PUD/GERD c/o headache and Fall. Pt mentioned that his hand tremor was getting worse in the past year that he dropped things and had a hard time writing legibly. He was found to have b/l carotid mass. Fall likely mechanical from carotid mass b/l vs deconditioned state s/p recent R knee surgery - PT/OT/OOB for strengthening - b/l 20-39% proximal ICA stenosis, antegrade flow - Carotid U/S: R 2 cm and L 4 cm b/l hypoechoic hypervascular masses at carotid bifurcation, carotid body tumors. - CTA head and neck: confirmed - Rtyjyig [id number] MRI - Pending Orthostatic VS - Surgery on board Migraine, acute - resolved - Head CT: No acute intracranial abnormality - MRI brain: Minimal R frontal white matter changes, nonspecific, chronic microangiopathic changes vs migraine vs fliosis No evidence of occlusion, stenosis, accular aneurysm - MRA head: Dolichoectasia of basilar artery, L vertebral a dominant - Topamax 25mg HS at 7pm for headache prevention maintenance - Fioricet PRN for breakthough migraine Essential tremor - Mysolin 50 HS s/r/d/w Dr. Hair <Ky Hair - Last Filed: 03/26/17 11:21> Objective - Vital Signs/Intake and Output Vital Signs (last 24 hours): Temp Pulse Resp BP Pulse Ox 97.8 F 82 20 108/73 96 03/26/17 05:57 03/26/17 05:57 03/26/17 05:57 03/26/17 05:57 03/26/17 05:57 Intake and Output: 03/26/17 03/26/17 06:59 18:59 Intake Total 4387 Output Total 0 Balance 4387 - Medications Medications: Current Medications Acetaminophen/Butalbital/Caffeine (Fioricet) 1 tab PO Q8 PRN PRN Reason: Migraine headache Last Admin: 03/25/17 21:15 Dose: 1 tab Atorvastatin Calcium (Lipitor) 20 mg PO DIN [facility] Last Admin: 03/25/17 17:10 Dose: Not Given Clopidogrel Bisulfate (Plavix) 75 mg PO DAILY [facility] [place] Last Admin: 03/25/17 11:03 Dose: 75 mg Enoxaparin Sodium (Lovenox) 40 mg SC DAILY [facility] PRN Reason: Protocol Sodium Chloride (Sodium Chloride 0.45%) 1,000 mls @ 60 mls/hr IV .[id number] [facility] Last Admin: 03/26/17 08:28 Dose: 60 mls/hr Losartan Potassium (Cozaar) 50 mg PO DAILY [facility] Last Admin: 03/25/17 11:03 Dose: 50 mg Pantoprazole Sodium (Protonix Ec Tab) 40 mg PO 0600 [facility] Primidone (Mysoline) 50 mg PO HS [facility] Last Admin: 03/25/17 21:14 Dose: 50 mg Topiramate (Topamax) 25 mg PO HS [facility] PRN Reason: Protocol Last Admin: 03/25/17 21:14 Dose: 25 mg Zolpidem Tartrate (Ambien) 10 mg PO HS [facility] PRN Reason: Protocol Last Admin: 03/25/17 21:14 Dose: 10 mg - Labs Labs: 03/26/17 05:20 03/26/17 05:20 PT 11.7 SECONDS (9.4-12.5) 03/24/17 20:30 INR 1.03 (0.93-1.08) 03/24/17 20:30 APTT 35.5 Seconds (25.1-36.5) 03/24/17 20:30 Attending/Attestation - Attestation I have personally seen and examined this patient.: Yes I have fully participated in the care of the patient.: Yes I have reviewed all pertinent clinical information, including history, physical exam and plan: Yes
--- NOTE | 2017-03-26 11:18 | PN ---
DATE: 03/26/2017 SUBJECTIVE: The patient is a 51-year-old male. The patient is in room 377 bed 2 at [facility] in [place]. The patient was admitted through the emergency room when he presented in the ER, he complained of thundering headache. The patient has had this in the past, he says he has been labeled with the diagnosis of migraine; however, the patient also has a history of hypertension and he has been placed on Topamax for his headache. The patient also takes Mysoline and the patient has history of cerebrovascular disease. The patient apparently this morning feels better, but he is concerned about finding in the carotid artery that shows some tumorous lesion in the carotid body. The patient should be evaluated by the neurovascular surgeon. PHYSICAL EXAMINATION: VITAL SIGNS: At this time, the patient's vital signs pulse is 82, blood pressure 108/73. He is on medication for his blood pressure. His O2 sat is 96%. HEENT: Head is normocephalic. NECK: Thyroid is not clinically enlarged. LUNGS: The trachea is central. Breath sounds are vesicular. No adventitious sounds are heard. HEART: Normal sinus rhythm. S1 and S2 present. CENTRAL NERVOUS SYSTEM: His cranial nerves are intact. The patient's motor sensory function seem to be within normal limits. The condition in the carotid body in the presence of migraine type headaches and elevated intermittent hypertension, the patient should be evaluated for possible contribution to the headache, so we will wait for the neurological surgeon to see the patient and make a decision on further management on the case. Currently, the patient is improving as far as his blood pressure is concerned and he does not have any headache at this time. MEDICATIONS: His list of medication consists of 10 mg of Ambien daily. The patient is on Losartan 50 mg daily. The patient is on Lipitor 20 mg daily, Lovenox 40 mg prophylaxis, Mysoline 50 mg daily. The patient is on Plavix 75 mg, Pantoprazole 40 mg daily. The patient takes Topamax 25 mg at night. LABORATORY DATA: His blood work done in the hospital; his hemoglobin is 14.5. Chemistry, the thyroid function study shows the T4 is 5.2 is slightly low. The patient's TSH is 0.36 it is low too. The patient's liver function studies pretty much with normal limits. BUN and creatinine within normal limits. PLAN: We will continue current management. Jovany Chaves MD
[2017-03-26 12:00] LABS: TESTOSTERONE 165 ng/mL
[2017-03-26 12:32] LABS: FOLATE > 20.0 ng/mL
--- NOTE | 2017-03-26 13:07 | PN ---
DATE: 03/26/2017 SUBJECTIVE: The patient is anxious given his recent testing, which reveals neck tumors. PHYSICAL EXAMINATION VITAL SIGNS: The blood pressure is 108/73, heart rate is in the 80s. NECK: Negative JVD. LUNGS: Without rales. HEART: S1, S2. EXTREMITIES: Without edema. LABORATORY DATA: Hemoglobin is 14.5. Chemistries are unremarkable. His echocardiogram reveals good LV function. His stress test performed a month ago shows no ischemia. IMPRESSION: 1. Status post syncope. 2. Neck tumors. 3. Good LV function. 4. History of hypertension. 5. Hypercholesterolemia. 6. Occasional atypical chest pain. Given these findings, the patient's cardiac status is stable with no cardiac contraindications to possible surgery. The patient is awaiting for discussion with Vascular Surgery. Jaime Horn MD
[2017-03-27] MEDS ORDERED: Pantoprazole 40 mg EC Tab PO SCH (06:00)
--- NOTE | 2017-03-29 08:21 | HP ---
HISTORY AND PRESENT ILLNESS: The patient is a 51-year-old male. The patient was seen in the office on 03/24/2017. The patient came to the office complaining of dizziness, also stated that he fell and the patient does not recall that if he lost consciousness, but the patient has no reconnection of the fall. The patient is complaining of right knee pain. The patient also complained of headache, spots in vision and lightheadedness. The patient's blood pressure in the office was found to be greater than 170 systolic and greater than 110/114 diastolic. The patient was evaluated in the office and because of the patient's symptomatology, the patient was advised to go to the Emergency Room. A 13 system review was done, pertinent positive negative dictated above. CODE STATUS: Full code. LIVING WILL ADVANCE DIRECTIVE: None. ALLERGIES: TO ASPIRIN. Height is 6 feet 4 inches. Weight is 176. BMI is 22. HOME MEDICATIONS: 1. Ambien 10 mg at bedtime p.r.n. 2. Ambien CR 12.5 mg p.r.n. 3. Diovan which the patient stopped taking, was resumed 80 mg daily. 4. Crestor 5 mg daily. 5. Protonix 40 mg daily or Dexilant 60 mg daily. 6. Xyzal 5 mg daily. 7. Folic acid 1 mg daily. 8. Drisdol 50,000 units once a week. 9. Furoside 1 tablet q. 8 p.r.n. 10. Vitamin B12 1000 mcg IM monthly. SOCIAL HISTORY: Denies substance abuse. Positive for alcohol drinking, beer drinking daily. Denies smoking. Denies communicable transmissible disease. 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 FAMILY HISTORY: Positive for hypertension and hyperlipidemia. PAST MEDICAL AND SURGICAL HISTORY: The patient's past medical history is significant for hypertension, history of poor compliance, history of dyslipidemia, history of testosterone deficiency, history of vitamin B12 deficiency, history of insomnia, history of allergic rhinitis, history of sinus surgeries, history of hyperlipidemia, history of insomnia, history of chronic sinusitis status post multiple sinus surgeries, history of degenerative joint disease of the lumbar spine, history of recent right knee arthroscopic surgery for meniscal tear, history of occasional alcohol use, history of vitamin B12 deficiency, history of hypovitaminosis D, history of lumbar disc disease and lumbar radiculopathy, history of lumbar epidural injection, history of multiple lumbar epidural steroid injection, history of gastritis, history of gastroesophageal reflux, history of hypertensive cardiovascular disease. The patient's past medical history is significant for nonspecific ST changes, history of leukopenia, history of chronic pain syndrome secondary to lumbar spine disc disease, history of recurrent chest pain, history of multiple sinus surgery, history of left foot surgery, history of tobacco chewing for 40 years, history of daily beer drinking. The patient's past medical history is significant for transaminitis, history of stress test done in 01/2016, which was normal wall motion, normal contractility, ejection fraction of 59% with unchanged stress test from 11/2014. The patient's past medical history is also significant for history of left shoulder tendonitis, history of tendinopathy history of degenerative joint disease of the left shoulder with history of possible glenoid labrum fraying versus small tear, history of left acromioclavicular joint degenerative joint disease, history of multiple lumbar epidural injection, history of cervical spine epidural injection, history of lumbar spinal epidural injection, history of atypical chest pain, history of left renal cyst, history of multiple bilateral renal simple cyst, history of hypertensive cardiovascular disease, history of negative stress in 01/2016, history of left ventricular ejection fraction of 57%, history of trace mitral regurgitation, mild tricuspid regurgitation. The patient's past medical history is significant for history of questionable ASPIRIN ALLERGY, history of L5-S1 lumbar epidural steroid injection, history of lumbar herniated disc, lumbar radiculopathy, history of cervical epidural steroid injection. and history of baby beer drinking. FAMILY HISTORY: Diabetes and hypertension in the parents. PHYSICAL EXAMINATION: VITAL SIGNS: T-max 98.8-98.3. Telemetry shows sinus rhythm, heart rate initially 106, down to 98, down to 97, 93, 80, 77 and 72, blood pressure initially in the Emergency Room 157/109, 152/89, 153/90, 150/93, 140/97 and 134/85. The patient was treated in the Emergency Room. The patient's respirations 18-20, O2 sat is 95-97%. GENERAL: The patient is seen and examined. HEAD: Normocephalic, atraumatic. HEENT: Shows pink conjunctivae. Anicteric sclerae, dry oral mucosa. No neck rigidity. Chronic changes of the sinus surgery noted. No oropharyngeal lesions noted. NECK: No neck rigidity. No audible carotid bruit. CHEST: Kyphosis. LUNGS: Examination shows no rales, crackles or wheezing. CARDIOVASCULAR: S1, S2, regular rhythm. No audible murmur, gallop or rub at this time. ABDOMEN: Soft. Positive bowel sounds. Mild epigastric tenderness. No hepatosplenomegaly. No guarding. No rigidity. No rebound tenderness. GENITALIA: Male. RECTAL: Deferred. EXTREMITY: Shows no pitting, no calf tenderness, no Homans' sign. VASCULAR: Palpable pulses. MUSCULOSKELETAL: Shows a body mass index of 21.4. NEUROLOGIC: The patient is alert, awake, oriented x3. Cranial nerves II-XII intact. Speech is clear. Motor strength is 5/5 upper and lower extremity, questionable mild intention tremor noted for which the patient is supposed to be on Klonopin, which he is not taking. Coordination is intact, [id number]-[id number] finger is intact. Rapid alternating movement is intact. PSYCHIATRIC: Negative. DIAGNOSTICS: CBC, there were 2 CBCs done; WBC 7.3 and 4.7, hemoglobin/hematocrit 15.2/44.3 and 15.1/45.1, platelets 242 and 232,000. PT/PTT 11.7, 35.5. The initial chemistry shows sodium 140, potassium 3.5, chloride 101, CO2 29, anion gap 14, BUN 9, creatinine 1.2, GFR greater than 60, glucose 92, calcium 10.7, ALT is 84. Troponin less than 0.01. Second set of troponin is negative. Repeat chemistry; sodium 143, potassium is up to 3.7, chloride 105, CO2 27, anion gap 15, BUN 11, creatinine 1.1, GFR greater than 60, glucose 89, calcium 10.3, phosphorus 4.6, magnesium 1.9, ALT is down to 73. CT of the chest was done in the Emergency Room. The patient was seen and evaluated in the Emergency Room by Dr. Hopkins, which was negative. The patient had a chest x-ray done which was negative for any pathology. 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 The patient was also had MRI, MRA of the brain. The results of which were reviewed. The patient also had a CTA of the head and neck which was reviewed and explained to the patient. EKG shows sinus rhythm. Questionable left axis deviation, nonspecific ST changes. Echocardiogram was reviewed, which was done. The patient was seen and evaluated in the Emergency Room. The patient was advised to be admitted to telemetry. IMPRESSION AND PLAN: 1. Questionable and possible syncope etiology undetermined. 2. Uncontrolled hypertension versus questionable hypertensive urgency emergency. 3. Headache, etiology undetermined, questionable secondary to uncontrolled hypertension versus migraine headache versus tension headache. 4. Upper extremity intention tremors. 5. History of alcohol use and daily tobacco chewing. 6. History of chronic sinusitis status post multiple sinus surgeries. 7. Migraine headache. 8. Essential tremor of the upper extremity. 9. Bilateral 20-39% proximal internal carotid artery stenosis. 10. Hypokalemia. 11. Transaminitis. 12. Hypertensive cardiovascular disease with nonspecific ST changes. 13. Left axis deviation. 14. Right maxillary sinusitis versus mucous retention cyst. 15. 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 16. Left maxillary sinuses large retention cyst and polyp with mucosal thickening of the paranasal sinuses. 17. Nonspecific right frontal white matter changes. 18. Early chronic microangiopathic changes. 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 20. Possible syncope etiology undetermined. 21. Large left carotid bifurcation heterogeneously encasing mass located between the left internal and external carotid arteries extending posteriorly and laterally with the larger portion extending posterolaterally representing carotid body tumor measuring 4.2 x 4.3 x 2.7 cm with resultant splaying of the internal and external carotid artery as well as significant compression of the left jugular vein with poorly enhancing jugular bulb related to compressive effect on the jugular vein by the left carotid body tumor. 22. Right-sided heterogenous enhancing mass between the right internal and external carotid artery measuring 1.8 x 1.7 x 2.1 cm, representing a carotid body tumor. 23. Cervical vertebral artery asymmetry, left greater than the right. 24. 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 25. Left ventricular ejection fraction of 54%. 26. Grade 1 abnormal relaxation pattern. 27. Mild tricuspid regurgitation. 28. Mild pulmonary hypertension with right ventricular systolic pressure of 34 mmHg. 29. Left ventricular hypertrophy. 30. Upper extremity essential tremors. 31. History of recent right knee arthroscopic surgery. 32. History of poor compliance. PLAN: At this time, the patient has been awaiting. The patient is evaluating Neurology, Cardiology evaluation. The patient has also been requested Vascular Surgery, Neurology, and Cardiology evaluation. The patient has been admitted to telemetry. CURRENT MEDICATIONS: 1. Ambien 10 mg at bedtime p.r.n. 2. The patient is started on Cozaar 50 mg daily. 3. Fioricet 1 tablet q. 8 hours p.r.n. The patient was given potassium supplementation for low potassium. The patient, Klonopin 0.5 mg p.o. daily was discontinued. 4. Lipitor 20 mg daily. 5. Lopressor was given in the ER 25 mg. 6. The patient was given Lovenox 40 mg subcu daily. The patient has been started by Neurology on Mysoline, primidone 50 mg at bedtime. 7. The patient was started on Plavix 75 mg daily. 8. The patient was started on Protonix 40 mg daily. 9. IV fluid half normal saline at 86 an hour. 10. The patient was started on Topamax 25 mg daily. 11. Tylenol 650 q. four p.r.n. At present, the patient has been ordered further diagnostic therapeutic intervention. The patient's further management will be dependent upon the patient's clinical condition, hemodynamic status and as the patient response to diagnostic and therapeutic intervention and as per recommendation and evaluation by Neurology, Cardiology and Vascular Surgery. The patient was extensively explained about the details of his medical condition, need for further diagnostic therapeutic intervention, need for further evaluation by Cardiology, Neurology and Vascular Surgery, was discussed and explained to the patient. The patient was seen and examined in room 377, bed 2. Dictated and electronically signed, not read. Signing off, Zeke Paiz MD
[2017-03-29 19:43] LABS: LYME IGM NEGATIVE (NEGATIVE)
[2017-03-29 20:18] LABS: LYME IGG NEGATIVE (NEGATIVE)
== END 2017-03-26 11:30 | disposition left against medical advice (07) ==
LOC: ED 18:54 → ERH 23:14 → 3RSO 03-25 00:36 → 5RSO 03-26 10:10
PROVIDERS: ADMIT Internal Medicine; ATTEND Internal Medicine
DX: R55 Syncope and collapse (principal); R07.89 Other chest pain; I11.9 Hypertensive heart disease without heart failure; I65.23 Occlusion and stenosis of bilateral carotid arteries; E78.00 Pure hypercholesterolemia, unspecified; D49.89 Neoplasm of unspecified behavior of other specified sites; G43.909 Migraine, unspecified, not intractable, without status migrainosus; G25.0 Essential tremor; E87.6 Hypokalemia; I27.20 Pulmonary hypertension, unspecified; K21.9 Gastro-esophageal reflux disease without esophagitis; F17.220 Nicotine dependence, chewing tobacco, uncomplicated; Z87.11 Personal history of peptic ulcer disease
CPT/HCPCS: 36415; 70450; 70496; 70498; 70544; 70553; 71045; 80053; 80061; 82550; 82607; 82746; 83615; 83735; 84100; 84403; 84439; 84443; 84484; 85025; 85027; 85610; 85730; 86592; 86618; 93005; 93306; 93880; 95812; 96374; 99285; A9579; G0378; J7030; Q9967